=== PATIENT | female | born 1990 | race Caucasian/White ===

== ENCOUNTER 2024-11-03 10:39 | Outpatient (CLI) | payer OTHER, SELFPAY ==
[2024-11-03] VITALS (7 sets, daily range): BP systolic 141–148; BP diastolic 80–87; PULSE 83–89
--- OUTSIDE RECORDS SUMMARY | 2024-11-03 10:48 | XMS_ITS | Clinical Summary ---
Author Organization [facility] Address [address] [place] [address] Care Team Providers Care Heel Padder Name Role Phone Unknown, Notinfile Primary Care Provider Unavail able Allergies No known active allergies Medications meclizine (ANTIVERT) 25 mg tablet Take 1 tablet (25 mg total) by mouth 3 (three) times a day as needed for dizziness 30 tablet 2 Active butalbital-aspi rin-caffeine (FIORINAL) 50-325-40 mg capsule Take 1 capsule by mouth every 4 (four) hours as needed for headaches 30 capsule 2 Active ketorolac (TORADOL) 10 mg tablet Take 1 tablet (10 mg total) by mouth every 6 (six) hours as needed for pain 20 tablet 3 Active Active Problems No known active problems Social History Tobacco Use Types Packs/Day Years Used Date Smoking Tobacco: Never Tobacco Cessation:Counseling Given: Not Answered Alcohol Use Standard Drinks/Week Comments Never 0 (1 standard drink = 0.6 oz pur e alcohol) Comments No Sex and Gender Information Value Date Recorded Sex Assigned at Not on file 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 Gender Identity Not on file Sexual Orientation Not on file Obstetrics History Last Filed Vital Signs Vital Sign Reading Time Taken Comments Blood Pressure 173/94 04/02/2023 7:23 PM CDT Pulse 66 04/02/2023 7:23 PM CDT Temperature 37.2 C (99 F) 04/02/2023 7:23 PM CDT Respiratory Rate 16 04/02/2023 7:23 PM CDT Oxygen Saturation 100% 04/02/2023 7:23 PM CDT Inhaled Oxygen Concentration - - Weight 74.3 kg (163 lb 12.8 oz) 04/02/2023 7:23 PM CDT Height 154.9 cm (5' 1) 04/02/2023 7:23 PM CDT Body Mass Index 30.95 04/02/2023 7:23 PM CDT Plan of Treatment Health Maintenance Due Date Last Done Comments Cervical Cancer Screening 1990 Depression Screening 1990 Hepatitis C Screening 1990 DTaP/Tdap/Td Vaccine (1 - Tdap) 2001 Varicella Vaccines (1 of 2 - 13+ 2-dose series) 2003 Hepatitis B Screening 2008 Regular Well Visit/Exam 18-64 2008 Influenza Vaccine (Season Ended) 2025 HPV Vaccines Aged Out No longer eligi ble based on patient's age to complete this topic Pneumococcal vaccine <65 Aged Out No longer eligible based on patient's age to complete this topic Insurance [facility] Care Teams Heel Padder Relationship Specialty Start Date End Date Unknown, Notinfile PCP - General 04/02/23
--- OUTSIDE RECORDS SUMMARY | 2024-11-03 10:48 | XMS_ITS | Referral Summary ---
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
--- OUTSIDE RECORDS SUMMARY | 2024-11-03 10:48 | XMS_ITS | Data Portability ---
Author Organization [facility] [place] Address [address] [place] [address] [place] [address] Assessment Encounter Date Assessment Date Assessment LastModified by Organization Details LastModified Time 10/05/2024 10/05/2024 Patient is ___weeks . Discussed plan. Not available 10/05/2024 11:31:30 10/16/2024 10/16/2024 Patient is ___weeks . Discussed plan. Not available 10/16/2024 12:54:40 Plan of Treatment Reminders Order Date Submit Date Provider Last Modified By Organization Details Last Modified Time Details Appointments None record ed. Lab None record ed. Referral None record ed. Procedures None record ed. Surgeries None record ed. Imaging US, obstet aayush, follow -up 025 10/17/[address], [address], [place], [address], 21:14:53 US, obstet aayush, follow -up 025 09/19/[address], [address], [place], [address], 18:28:34 Medication Orders None record ed. Patient TargetsNo targets recorded. Patient InstructionsNo instructions recorded. Reason for Referral None Reported. Results Created Date Observation Date Name Description Value Unit Range Abnormal Flag Note LastModifiedBy Organization Detail LastModifiedTime 09/19/19 25 09/18/2024 HEMOG LOBIN (HGB) HGB 9.9 g/dL (based on docume nted legal sex) 11.6-1 5.4 low Not Available [facility] (Lab) [address], [place], [address], 09/19/2024 10:44:01 09/19/19 25 09/18/2024 HEMAT OCRIT (HCT) HCT 29.6 % (based on docume nted legal sex) 34.0-4 5.0 low Not Available [facility] (Lab) [address], [place], [address], 09/19/2024 10:44:02 09/19/19 25 09/18/2024 GTT - GESTA KARINA L TARIK Styles, ACOG OB glucose, 1 hour screen 113 mg/dL 70-135 Not Available [facility] (Lab) [address], [place], [address], 09/19/2024 10:44:02 09/19/19 25 09/18/2024 HIV 1/2 ANTIG EN/AN TIBOD Y, REFLE X CONFI RMATI ON HIV antigen/anti body Nonrea ctive nonrea ctive HIV-1 antig en and HIV-1 /HIV- 2 antib odies were not detec uday. No labor atory evide nce of HIV infec tion. Not Available [facility] (Lab) [address], [place], [address], 09/19/2024 10:44:02 09/19/19 25 09/18/2024 RPR SCREE N, REFLE X TITER /CONF IRMAT ION RPR qualitative Nonrea ctive nonrea ctive Not Available [facility] (Lab) [address] [place], [address], 09/19/2024 10:44:03 08/22/19 25 08/21/2024 US, obste tric, follo w-up No observ ation record ed. [email or web address] [facility] [address], [place], [address], 08/21/2024 16:13:16 08/22/19 25 08/21/2024 US, obste tric, follo w-up No observ ation record ed. [email or web address] [address], [place], [address], 08/23/2024 22:57:33 09/19/19 25 09/18/2024 US, obste tric, follo w-up No observ ation record ed. [email or web address] [place] [address], [place], [address], 09/18/2024 17:12:51 09/19/19 25 09/18/2024 US, obste tric, follo w-up No observ ation record ed. [address], [place], [address], 09/25/2024 16:00:38 10/17/19 25 10/16/2024 US, obste tric, follo w-up No observ ation record ed. [email or web address] [place] [address], [place], [address], 10/16/2024 18:14:32 10/17/19 25 10/16/2024 US, obste tric, follo w-up No observ ation record ed. [email or web address] [address], [place], [address], 10/17/2024 15:03:57 Result Notes None recorded. Problems Name Problem SNOMED Code Status Onset Date Resolution Date Notes Provider Name and Address Organization Details Recorded Time Dysmenorr hea 520677793 Active 2012 Dysmenorr hea;Pract ice ID: 0001 Not Available [facility] 0 19:06:35 Irregular intermens trual bleeding 05700775 Active 2012 Metrorrha bishnu;Pract ice ID: 0001 Not Available [facility] 0 19:06:35 Family planning surveilla nce Active 2012 Surveilla nce of other contracep tive method;Pr actice ID: 0001 Not Available [facility] 0 19:06:[address] Concept Active 2017 Encntr for instrument repairer helper exam (general) (routine) w/o abn findings; Practice ID: 0001 Not Available [facility] 0 19:06:35 Removal of intrauter ine device Active 2017 Encounter for removal of intrauter ine contracep tive device;Pr actice ID: 0001 Not Available [facility] 0 19:06:35 Threatene d miscarria ge 55770689 Active 2018 Threatene d ; Practice ID: 0001 Not Available [facility] 0 19:06:35 Gestation less than 9 weeks 248956966 Active 2018 Less than 8 weeks gestation of ;Practice ID: 0001 Not Available [facility] 0 19:06:35 test negative 182686548 Active 2012 examinati on or test, negative result;Re corded Elsewhere : No Locati on: [facility] So urce: EHR Chron ic: N Practic e ID: 0001 Bill able Time: 02:30:00 PM Not Available [facility] 0 19:06:36 Insertion of intrauter ine contracep tive device Active 2012 INSERTION OF IUD;Recor ded Elsewhere : No Locati on: [facility] So urce: EHR Chron ic: N Practic e ID: 0001 Bill able Time: 02:30:00 PM Not Available [facility] 0 19:06:36 Specializ ed medical examinati on Active 2011 Gynecolog ical Examinati on;Record ed Elsewhere : No Locati on: [facility] So urce: EHR Chron ic: N Practic e ID: 0001 Bill able Time: 01:00:00 PM Not Available [facility] 0 19:06:36 Infection by Trichomon as 74751094 Active 2017 Trichomon iasis, unspecifi ed;Record ed Elsewhere : No Locati on: [facility] So urce: EHR Chron ic: N Practic e ID: 0001 Bill able Time: 03:22:43 PM Not Available [facility] 0 19:06:36 Screening for malignant neoplasm of cervix Active 2011 Screening for malignant neoplasms of the cervix;Re corded Elsewhere : No Locati on: [facility] So urce: EHR Chron ic: N Practic e ID: 0001 Bill able Time: 01:00:00 PM Not Available [facility] 0 19:06:36 test positive 353326583 Active 2011 examinati on or test, positive result;Re corded Elsewhere : No Locati on: [facility] So urce: EHR Chron ic: N Practic e ID: 0001 Bill able Time: 01:00:00 PM Not Available [facility] 0 19:06:36 Uterine size for dates discrepan cy 934383433 Active 2011 UTERINE SIZE KIT-ANTEP AR;Record ed Elsewhere : No Locati on: [facility] So urce: EHR Chron ic: N Practic e ID: 0001 Bill able Time: 11:45:00 AM Not Available [facility] 0 19:06:36 Primigrav martell 772186883 Active 2012 Supervisi on of normal first ;Recorded Elsewhere : No Locati on: [facility] So urce: EHR Chron ic: N Practic e ID: 0001 Bill able Time: 02:45:00 PM Not Available [facility] 0 19:06:36 Complicat ion of , childbirt h and/or puerperiu m 276591984 Active 2012 Other current condition s classifia ble elsewhere of mother, antepartu m;Practic e ID: 0001 Not Available [facility] 0 19:06:37 Abdominal pain 58124297 Active 2012 Abdominal pain, unspecifi ed site;Prac izzy ID: 0001 Not Available [facility] 0 19:06:37 Labor and delivery complicat ed by heart rate anomaly 544409001 Active 2012 HEART RATE NON REASSURIN G;Practic e ID: 0001 Not Available [facility] 0 19:06:37 Ill-defin ed intestina l infection Active 2012 No Show Fee;Pract ice ID: 0001 Not Available [facility] 0 19:06:37 Delivery normal 28133146 Active 2012 Normal delivery; Practice ID: 0001 Not Available [facility] 0 19:06:37 Single live from jama 876424861 Active 2012 Mother with single liveborn; Practice ID: 0001 Not Available [facility] 0 19:06:37 Postpartu m care Active 2012 Routine postpartu m follow-up ;Recorded Elsewhere : No Locati on: [facility] So urce: EHR Chron ic: N Practic e ID: 0001 Bill able Time: 09:30:00 AM Not Available [facility] 0 19:06:38 Ultrasono graphy Active 2012 screening for malformat ion using ultrasoni cs;Record ed Elsewhere : No Locati on: [facility] So urce: EHR Chron ic: N Practic e ID: 0001 Bill able Time: 02:30:00 PM Not Available [facility] 0 19:06:38 screening Active 2012 screening for malformat ion using ultrasoni cs;Record ed Elsewhere : No Locati on: [facility] So urce: EHR Chron ic: N Practic e ID: 0001 Bill able Time: 02:30:00 PM Not Available [facility] 0 19:06:38 Congenita l malformat ion 065287477 Active 2012 screening for malformat ion using ultrasoni cs;Record ed Elsewhere : No Locati on: [facility] So urce: EHR Chron ic: N Practic e ID: 0001 Bill able Time: 02:30:00 PM Not Available [facility] 0 19:06:38 Urinary tract infectiou s disease 72770645 Active 2011 Urinary Tract Infection ;Recorded Elsewhere : No Locati on: [facility] So urce: EHR Chron ic: N Practic e ID: 0001 Bill able Time: 01:00:00 PM Not Available [facility] 0 19:06:[address] Concept Active 2017 Encntr for general adult medical exam w/o abnormal findings; Recorded Elsewhere : No Locati on: [facility] So urce: EHR Chron ic: N Practic e ID: 0001 Bill able Time: 10:30:00 AM Not Available [facility] 0 19:06:38 anatomy study Active 2012 [facility] ANATMC SURVEY;Re corded Elsewhere : No Locati on: [facility] So urce: EHR Chron ic: N Practic e ID: 0001 Bill able Time: 02:00:00 PM Not Available [facility] 0 19:06:38 50672094 Active 2023 Viji Atkinson [facility], [facility] 4 15:07:44 Velamento us insertion of umbilical cord 81305055 Active Juan Miguel Rich MD [address], [place], [address], [facility] 5 11:16:58 Problem Notes None recorded. Procedures Surgical History Date Name Laterality Status Provider Name and Address Organization Details Recorded Time 02/09/2018 Date of Last Pap Smear completed Viji Atkinson [facility] 05/25/2024 15:12:19 Imaging Results None recorded. Procedure Notes None recorded. Medical Equipment None Reported. Allergies No known drug allergies Medications Name Sig Start Date Stop Date Status Note LastModified by Organization Details LastModified Time Flagyl 500 mg tablet take 4 tablets by oral route all at once 05/02 completed Prescrib ed Elsewher e: No Locat ion: [facility] odify By: [email or web address] reyes DateTime : 03/01/20 18 03:22:43 PM Not Available Not Available Not Available pantopraz ole 40 mg tablet,de layed release TAKE 1 TABLET BY MOUTH EVERY DAY active Not Available Not Available No t Available Vitamin D2 1,250 mcg (50,000 unit) capsule take 1 capsule (96502SL ITS) by oral route every week 12/22 completed Prescrib ed Elsewher e: No Locat ion: [facility] odify By: maximiliano story DateTime : 09/09/19 13 10:20:20 AM Not Available Not Available Not Available Augmentin 500 mg-125 mg tablet take 1 tablet by oral route every 12 hours 12/22 completed Prescrib ed Elsewher e: No Locat ion: Isidro johnson [facility] odify By: maximiliano story DateTime : 05/10/20 12 11:45:00 AM Not Available Not Available Not Available nitrofura ntoin monohydra te/macroc rystals 100 mg capsule TAKE 1 CAPSULE BY MOUTH TWICE A DAY DIRECTED FOR 7 DAYS 07/24 completed Not Available Not Available Not Available active Not Available Not Avai lable Not Available 10 mg-[address] by Topical route every USE ASS NEEDED WITH INTERCOU RSE 05/02 completed Prescrib ed Elsewher e: Yes Loca tion: Isidro johnson [facility] odify By: maximiliano story DateTime : 12/23/19 13 09:30:00 AM Not Available Not Available Not Available Maria Victoria-D uo DHA 29 mg-1 mg-400 mg oral pack take 2 by Oral route every day for 30 days 06/02 completed Prescrib ed Elsewher e: No Locat ion: Isidro johnson [facility] odify By: dilip story DateTime : 05/04/20 12 01:00:00 PM Not Available Not Available Not Available Vitals Date Recorded Body weight Body mass index (BMI) Body height Systolic blood pressure Diastolic blood pressure Provider Name and Address Organization Details Last Updated DateTime 09/18/2024 65620.99 608 g 33.7 kg/m2 157.48 cm 135 mm[Hg] 85 mm[Hg] iVji Atkinson [facility] 10:07:11 Date Recorded Body weight Systolic blood pressure Diastolic blood pressure Provider Name and Address Organization Details Last Updated DateTime 10/05/2024 15070.5884 5 g 145 mm[Hg] 90 mm[Hg] Viji Atkinson [facility] 10/05/2024 11:32:07 Date Recorded Body height Body mass index (BMI) Body weight Systolic blood pressure Diastolic blood pressure Provider Name and Address Organization Details Last Updated DateTime 10/16/2024 157.48 cm 33.7 kg/m2 01219 g 148 mm[Hg] 86 mm[Hg] Viji Atkinson [facility] 12:56:36 Social History Question Answer Notes LastModified by Organizat ion Details LastModified Time Do You Have An Advance Directive? No [email or web address] Information n ot available 05/12/2024 Are You Blind Or Do You Have Difficulty Seeing? No [email or web address] Information n ot available 05/02/2024 What Is Your Level Of Caffeine Consumption? Occasional [email or web address] Information not available 05/12/2024 In The 14 Days Before Symptom Onset, Have You Had Close Contact With A Laboratory-confirm ed COVID-19 While That Case Was Ill? No [email or web address] Information n ot available 05/02/2024 In The 14 Days Before Symptom Onset, Have You Had Close Contact With A Person Who Is Under Investigation For COVID-19 While That Person Was Ill? No Information not available 05/02/2024 Have You Been To An Area Known To Be High Risk For COVID-19? No Information not available 05/02/2024 Are You Deaf Or Do You Have Serious Difficulty Hearing? No [email or web address] Information not available 05/02/2024 What Type Of Diet Are You Following? REGULAR [email or web address] Information n ot available 05/12/2024 What Is The Highest Grade Or Level Of School You Have Completed Or The Highest Degree You Have Received? [id number] Information not available 05/12/2024 Are There Any Guns Present In Your Home? No [email or web address] Information not available 05/12/2024 Do You Use Protection During Sex? No [email or web address] Information not available 05/12/2024 Do You Use Your Seat Belt Or Car Seat Routinely? Yes [email or web address] Information not available 05/02/2024 Are You Sexually Active? Yes [email or web address] Information not available 05/02/2024 Do You Have Smoke And Carbon Monoxide Detectors In Your Home? Yes [email or web address] Information not available 05/02/2024 How Much Tobacco Do You Smoke? No [email or web address] Information not available 05/12/2024 Do You Use Sunscreen Routinely? Yes [email or web address] Information not available 05/02/2024 Have You Used IV Drugs? No [email or web address] Information not available 05/12/2024 Do You Have Difficulty Walking Or Climbing Stairs? No [email or web address] Information not available 05/02/2024 Sex: Unknown Functional Status Question Answer Note LastModified by Organizat ion Details LastModified Time Do you use any illicit or recreational drugs? No [email or web address] Information not available 05/02/2024 What is your level of alcohol consumption? None [email or web address] Information not available 05/12/2024 Are you able to walk? YESWOREST [email or web address] Information not available 05/02/2024 Are you able to care for yourself? No [email or web address] Information n ot available 05/02/2024 What is your occupation? Unemployed [email or web address] Information not available 05/12/2024 Do you have difficulty dressing or bathing? No [email or web address] Information not available 05/02/2024 What is your exercise level? None [email or web address] Information not available 05/02/2024 Mental Status Question Answer Note LastModified by Organization D etails LastModified Time Do you feel stressed (tense, restless, nervous, or anxious, or unable to sleep at night)? [id number] [email or web address] Information not available 05/12/2024 Family History Relationship Description Onset Age of this Age Resolved Age Notes LastModified by Organization Details LastModified Time Father Malignant tumor of colon [email or web address] Not available 2023 11:18:19 Mother Hypertensive disorder [email or web address] Not available 2023 11:18:30 Notes:Father: Cancer, colon Maternal grandfather: Hypertension Paternal grandfather: Cancer, colon Paternal grandmother: Cancer, breast Medical History Condition Response Allergies (Food, seasonal, environmental ) N Other N Breast Cancer N Drug/Latex Allergies/Reactions N Blood Transfusion N Dermatologic Disorders N Lung Disease N Defects or Inherited Disease N Breast Problem N Gestational Diabetes N Hematologic disorders N Anesthesia Complications N History of STI N Deep Vein Thrombosis N Polycystic ovary syndrome N Anxiety Disorder N Autoimmune disease N Arthritis N Infertility N Polyps N Acid Reflux (GERD) N History of abnormal pap N Cancer N Stroke N Varicosities N Neurologic/Epilepsy N Endometriosis N High Cholesterol N Headaches N Fibromyalgia N Kidney Disease N Heart Problems N Kidney or Bladder Problems N Thyroid Problems N GI Problems N Eating Disorder N Anemia N Art (IVF or FET) N Psychiatric Illness N Ovarian Cancer N Diabetes N Pulmonary (TB, Asthma) N Hepatitis/Liver Disease N No Past Medical History Y Eczema N Urinary Tract Infection N Abuse/Domestic Violence N Asthma N Trauma/Violence N Depression/ depression N Heart Disease N Pre-Eclampsia N Hypertension N Osteoporosis N Thrombophilias N Gynecological History Statement/Question Response Abnormal Pap N Flow Moderate Date of LMP 03/01/2024 On BCP's at Conception? N Was last menstrual period normal Y STIs/STDs Y Duration of Flow (days) 5 Current Control Method Are cycles usually normal Y Frequency of Cycle (Q days) 28 Sexually Active? Y Menses Monthly Y Age of first menstrual cycle 10 Date of Last Pap Smear 02/09/2018 Sexual Problems? N LMP Approximate Obstetrics History GPAL:G 3 P 1 0 1 1 Type Value Full Term 1 Spontaneous 1 Living 1 Total 3 Past Encounters Encounter ID Performer Location Encounter Start Date Encounter Closed Date Diagnosis/Indication Diagnosis SNOMED-CT Code Diagnosis ICD10 Code Diagnosis Note [id number] Juan Miguel Rich MD [facility] [address],[place] [address] 05/02/2024 11:02:45 05/02/2024 11:40:21 [id number] SHARI TAVERAS MD [facility] [address],[place] [address] 05/02/2024 11:14:07 05/04/2024 11:30:31 [id number] SHARI TAVERAS MD [place] [address],[place] [address] 05/12/2024 09:34:30 05/12/2024 10:15:51 screening 897405952 Z36.0 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 Exam today within normal limits.2. Ultrasound 05/02 confirms GA and viability. EDC . GC/Clamydi a testing done: will f/u as indicated. 4. ACOG guidelines and plan of care for reviewed with patient. All questions answered.5 . Return to office at 12 weeks for new OB visit6. Will need new OB labs drawn today.7. Genetic screening: desires, will draw today [id number] MD Zenon Lott [address],[place] [address] 05/25/2024 14:03:20 05/25/2024 15:08:48 screening 816547745 Z36.82 Z3A.12 [id number] MD Zenon Lott [address],[place] [address] 05/25/2024 14:03:41 05/25/2024 15:56:37 Routine care 679336077 Z34.90 [id number] MD Zenon Lott [address],[place] [address] 06/26/2024 09:33:57 06/26/2024 10:30:39 Routine care 300957947 Z34.90 [id number] MD Zenon Lott [address],[place] [address] 07/24/2024 09:25:07 07/24/2024 10:37:56 screening for malformation 335116632 Z36.3 Z3A.20 [id number] MD Zenon Lott [address],[place] [address] 07/24/2024 09:25:19 07/24/2024 11:40:59 Gastroesophageal reflux disease 508230657 K21.00 Routine an tenatal care 681506955 Z34.90 [id number] MD Zenon Lott [address],[place] [address] 08/21/2024 09:25:46 08/21/2024 10:12:54 screening 279105534 Z36.2 O43.122 Z3A.24 [id number] MD Zenon Lott [address],[place] [address] 08/21/2024 09:25:58 08/21/2024 11:06:35 Routine care 884958918 Z34.90 [id number] MD Zenon Lott [address] 1 09/18/2024 09:26:25 09/18/2024 10:11:01 Velamentous insertion of umbilical cord 74673133 O43.123 Z3A.28 [id number] MD Zenon Lott [address],[place] [address] 09/18/2024 09:26:47 09/18/2024 10:59:01 care status 575325479 Z34.83 [id number] MD Zenon Lott [address],[place] [address] 10/05/2024 11:04:56 10/05/2024 11:46:16 care status 988652901 Z34.83 [id number] MD Zenon Lott [address],[place] [address] 10/16/2024 11:52:23 10/16/2024 12:50:32 Velamentous insertion of umbilical cord 43852906 O43.123 Z3A.32 [id number] Juan Miguel Rich MD [facility] [address],[place] [address] 10/16/2024 11:52:47 10/16/2024 13:15:05 care status 809975638 Z34.83 Health Concerns Section Related Observation LastModified by Organization Detai ls LastModified Time None Recorded Concern Status LastModified by Organization Details LastModified Time None Recorded Advance Directives Directive N: Payers Encounter Date Sequence Insurance Name Policy Number Policy Jennings Covered Member ID Jennings Member ID Guarantor Name 09/18/2024 1 [facility] (MEDICAID HMO) [id number] Phill Muller [id number] Phill Muller 10/05/2024 1 [facility] (MEDICAID HMO) [id number] Phill Muller [id number] Phill Muller 10/16/2024 1 [facility] (MEDICAID HMO) [id number] Phill Muller [id number] Phill Renzo 10/16/2024 1 [facility] (MEDICAID HMO) [id number] Phill Renzo [id number] Phill Renzo OBGyn Episode Ob Episode Information Episode Created Date Number of Fetuses Patient Bloodtype Patient rh Status Prepregnancy Weight lbs Domestic Partner Domestic Partner Phone Father Name Dental Practitioner Status 05/25/20 24 1 CLOSED Fetus Data First Name Last Name Admitted to NICU Weight (g) Sex Living Outcome Pediatric Complications Fetus ID Race Codes Race Delivery Type 2806.37 3704 M Prematur e 36150 Vaginal Delivery Sergey Calculation Initial Sergey Date Initial Exam Date Initial Exam Provider Initial Ultrasound Date Last Menstrual Period Date Ultra Sound Weeks Gestation 0 Eighteen To Twenty Week Sergey Update Ultra Sound Date Fundal Height At Umbil Quickening Date Ultra Sound Latest Weeks Gestation Final Sergey Confirmed By Final Sergey Confirmed Date Final Sergey Date Ultra Sound Latest Days Gestation 0 0 Menstrual History Last Menstrual Date Menses Monthly On Bcp Conception Prior Menses Frequency Hcg Plus Date Menarche Onset Age Delivery Information Delivery Date Delivery Type Labor Anesthesia Weeks Gestation Incision Type Labor Labor Length Hrs Delivered By Post Complications Tubal Sterilization Discharge Date Comments 3 38 Discharge Information Feeding Method Contraceptive Method Maternal HG B and HCT Levels Ob Episode Information Episode Created Date Number of Fetuses Patient Bloodtype Patient rh Status Prepregnancy Weight lbs Domestic Partner Domestic Partner Phone Father Name Dental Practitioner Status 05/02/20 24 1 CLOSED Fetus Data First Name Last Name Admitted to NICU Weight (g) Sex Living Outcome Pediatric Complications Fetus ID Race Codes Race Delivery Type , Spontane ous [id number] Sergey Calculation Initial Sergey Date Initial Exam Date Initial Exam Provider Initial Ultrasound Date Last Menstrual Period Date Ultra Sound Weeks Gestation 0 Eighteen To Twenty Week Sergey Update Ultra Sound Date Fundal Height At Umbil Quickening Date Ultra Sound Latest Weeks Gestation Final Sergey Confirmed By Final Sergey Confirmed Date Final Sergey Date Ultra Sound Latest Days Gestation 0 0 Menstrual History Last Menstrual Date Menses Monthly On Bcp Conception Prior Menses Frequency Hcg Plus Date Menarche Onset Age Delivery Information Delivery Date Delivery Type Labor Anesthesia Weeks Gestation Incision Type Labor Labor Length Hrs Delivered By Post Complications Tubal Sterilization Discharge Date Comments 9 Discharge Information Feeding Method Contraceptive Method Maternal HG B and HCT Levels Ob Episode Information Episode Created Date Number of Fetuses Patient Bloodtype Patient rh Status Prepregnancy Weight lbs Domestic Partner Domestic Partner Phone Father Name Dental Practitioner Status 05/25/20 24 1 A Positive 169 OPEN Fetus Data First Name Last Name Admitted to NICU Weight (g) Sex Living Outcome Pediatric Complications Fetus ID Race Codes Race Delivery Type [id number] Problems Problem Notes Problem Name Start Date End Date Resolution Snomed Code Not e Velamentous insertion of umb ilical cord [id number] Sergey Calculation Initial Sergey Date Initial Exam Date Initial Exam Provider Initial Ultrasound Date Last Menstrual Period Date Ultra Sound Weeks Gestation 05/25/2024 05/02/2024 03/01/2024 9 Eighteen To Twenty Week Sergey Update Ultra Sound Date Fundal Height At Umbil Quickening Date Ultra Sound Latest Weeks Gestation Final Sergey Confirmed By Final Sergey Confirmed Date Final Sergey Date Ultra Sound Latest Days Gestation 0 [email or web address] 05/25/2024 12/07/19 25 0 Pre- Flowsheet Flowsheet Date 05/25/2024 Terrazas Score Blood Edema Fundus Height Fundus Units Glucose Ketones Leukocytes Nitrite Labor Signs Protein Cervic Dilation Cervic Effacement Cervic Station Type Weight in lbs Pre/Post Dialysis Refused Weight 166.770938061665 BP Diastolic BP Location Tested BP Systolic BP Type 87 L arm 139 sitting Fetus Heart Rate Present A 144 Fetus Movement A No Comments this patient is a 34-year-ol d multiparous female at 12 weeks' gestation who presents for initial care. She has a history of term vaginal births. Her medical, surgical, obstetric history is unremarkable. She is vaccinated. She was given precautions recommendations for . We talked about vaccines in . Talked about care in detail. She is having genetic testing. She had a normal 12 week ultrasound. To begin routine care. Flowsheet Date 06/26/2024 Terrazas Score Blood Edema Fundus Height Fundus Units Glucose Ketones Leukocytes Nitrite Labor Signs Protein Cervic Dilation Cervic Effacement Cervic Station Type Weight in lbs Pre/Post Dialysis Refused 168.352645242195 BP Diastolic BP Location Tested BP Systolic BP Type 89 L arm 139 sitting Fetus Heart Rate Present A 148 Fetus Movement A Yes Comments no complaints, no problems, routine care, no contractions, no vaginal bleeding, no loss of fluid, no cramping Flowsheet Date 07/24/2024 [place]razas Score Blood Edema Fundus Height Fundus Units Glucose Ketones Leukocytes Nitrite Labor Signs Protein Cervic Dilation Cervic Effacement Cervic Station Type Weight in lbs Pre/Post Dialysis Refused BP Diastolic BP Location Tested BP Systolic BP Type Fetus Heart Rate Present Fetus Movement Comments Flowsheet Date 07/24/2024 Terrazas Score Blood Edema Fundus Height Fundus Units Glucose Ketones Leukocytes Nitrite Labor Signs Protein Cervic Dilation Cervic Effacement Cervic Station Type Weight in lbs Pre/Post Dialysis Refused 170.142631081824 BP Diastolic BP Location Tested BP Systolic BP Type 83 L arm 140 sitting Fetus Heart Rate Present A 145 Fetus Movement A Yes Comments no complaints, no problems, routine care, no contractions, no vaginal bleeding, no loss of fluid, no cramping Flowsheet Date 08/21/2024 Terrazas Score Blood Edema Fundus Height Fundus Units Glucose Ketones Leukocytes Nitrite Labor Signs Protein Cervic Dilation Cervic Effacement Cervic Station Type Weight in lbs Pre/Post Dialysis Refused BP Diastolic BP Location Tested BP Systolic BP Type Fetus Heart Rate Present Fetus Movement Comments Flowsheet Date 08/21/2024 Terrazas Score Blood Edema Fundus Height Fundus Units Glucose Ketones Leukocytes Nitrite Labor Signs Protein Cervic Dilation Cervic Effacement Cervic Station Type Weight in lbs Pre/Post Dialysis Refused Weight 179.136331981303 BP Diastolic BP Location Tested BP Systolic BP Type 85 L arm 146 sitting Fetus Heart Rate Present Fetus Movement A Yes Comments no complaints, no problems, routine care, no contractions, no vaginal bleeding, no loss of fluid, no cramping normal anatomy today Flowsheet Date 09/18/2024 Terrazas Score Blood Edema Fundus Height Fundus Units Glucose Ketones Leukocytes Nitrite Labor Signs Protein Cervic Dilation Cervic Effacement Cervic Station Type Weight in lbs Pre/Post Dialysis Refused BP Diastolic BP Location Tested BP Systolic BP Type Fetus Heart Rate Present Fetus Movement Comments Flowsheet Date 09/18/2024 Terrazas Score Blood Edema Fundus Height Fundus Units Glucose Ketones Leukocytes Nitrite Labor Signs Protein Cervic Dilation Cervic Effacement Cervic Station Type Weight in lbs Pre/Post Dialysis Refused 184.807637567513 BP Diastolic BP Location Tested BP Systolic BP Type 85 L arm 135 sitting Fetus Heart Rate Present Fetus Movement A Yes Comments no complaints, no problems, routine care, no contractions, no vaginal bleeding, no loss of fluid, no cramping Flowsheet Date 10/05/2024 Terrazas Score Blood Edema Fundus Height Fundus Units Glucose Ketones Leukocytes Nitrite Labor Signs Protein Cervic Dilation Cervic Effacement Cervic Station 28 cm Type Weight in lbs Pre/Post Dialysis Refused 185.279502691440 BP Diastolic BP Location Tested BP Systolic BP Type 90 L arm 145 sitting Fetus Heart Rate Present A 148 Present Fetus Movement A Yes Comments no complaints, no problems, routine care, no contractions, no vaginal bleeding, no loss of fluid, no cramping Flowsheet Date 10/16/2024 [place]razas Score Blood Edema Fundus Height Fundus Units Glucose Ketones Leukocytes Nitrite Labor Signs Protein Cervic Dilation Cervic Effacement Cervic Station Type Weight in lbs Pre/Post Dialysis Refused BP Diastolic BP Location Tested BP Systolic BP Type Fetus Heart Rate Present Fetus Movement Comments Flowsheet Date 10/16/2024 Terrazas Score Blood Edema Fundus Height Fundus Units Glucose Ketones Leukocytes Nitrite Labor Signs Protein Cervic Dilation Cervic Effacement Cervic Station Type Weight in lbs Pre/Post Dialysis Refused Weight 184.445644540949 BP Diastolic BP Location Tested BP Systolic BP Type 86 L arm 148 sitting Fetus Heart Rate Present A 145 Fetus Movement A Yes Comments no complaints, no problems, routine care, no contractions, no vaginal bleeding, no loss of fluid, no cramping Flowsheet Date 11/03/2024 [place]razas Score Blood Edema Fundus Height Fundus Units Glucose Ketones Leukocytes Nitrite Labor Signs Protein Cervic Dilation Cervic Effacement Cervic Station Type Weight in lbs Pre/Post Dialysis Refused BP Diastolic BP Location Tested BP Systolic BP Type Fetus Heart Rate Present Fetus Movement Comments Menstrual History Last Menstrual Date Menses Monthly On Bcp Conception Prior Menses Frequency Hcg Plus Date Menarche Onset Age 1003/01/2024 true 28 Delivery Information Delivery Date Delivery Type Labor Anesthesia Weeks Gestation Incision Type Labor Labor Length Hrs Delivered By Post Complications Tubal Sterilization Discharge Date Comments Discharge Information Feeding Method Contraceptive Method Maternal HG B and HCT Levels Ob Episode Information Episode Created Date Number of Fetuses Patient Bloodtype Patient rh Status Prepregnancy Weight lbs Domestic Partner Domestic Partner Phone Father Name Dental Practitioner Status 05/02/20 24 1 DELETED Sergey Calculation Initial Sergey Date Initial Exam Date Initial Exam Provider Initial Ultrasound Date Last Menstrual Period Date Ultra Sound Weeks Gestation 0 Eighteen To Twenty Week Sergey Update Ultra Sound Date Fundal Height At Umbil Quickening Date Ultra Sound Latest Weeks Gestation Final Sregey Confirmed By Final Sergey Confirmed Date Final Sergey Date Ultra Sound Latest Days Gestation 0 0 Menstrual History Last Menstrual Date Menses Monthly On Bcp Conception Prior Menses Frequency Hcg Plus Date Menarche Onset Age Delivery Information Delivery Date Delivery Type Labor Anesthesia Weeks Gestation Incision Type Labor Labor Length Hrs Delivered By Post Complications Tubal Sterilization Discharge Date Comments 3 Discharge Information Feeding Method Contraceptive Method Maternal HG B and HCT Levels
[2024-11-03 11:15] LABS: Basophils Percent Auto 0.3 % (0.2-1.2); Eosinophils Absolute Auto 0.1 K/mm3 (0-0.3); Eosinophils Percent Auto 0.8 % (0-4.4); Hematocrit 35.6 % (37.0-47.0); Hemoglobin 11.6 g/dL (12.0-15.0); Immature Granulocyte Absolute 0.08 K/mm3 (0.00-0.031); Immature Granulocyte Percent A 0.6 % (0-0.5); Lymphocytes Absolute Auto 1.14 K/mm3 (0.9-3.2); Lymphocytes Percent Auto 8.7 % (18.3-44.2); Mean Corpuscular HGB Conc 32.6 g/dl (32-36); Mean Platelet Volume 10.4 fl (7.4-10.4); Monocytes Absolute Auto 0.5 K/mm3 (0.1-0.6); Monocytes Percent Auto 4.1 % (2.6-8.5); Neutrophils Absolute Auto 11.1 K/mm3 (1.3-6.7); Neutrophils Percent Auto 85.5 % (45.5-73.1); Platelet Count Result 284 k/mm3 (150-375); Red Blood Count 3.87 M/mm3 (4.2-5.4); Red Cell Distribution Width 16.4 % (11.5-14.5)
[2024-11-03 11:25] LABS: Creatinine Urine 13.7 mg/dL; Total Protein Urine Random 16 mg/dL; Ur Ttl Prot Creatinine Ratio 1.17 mg/mg (0-0.20)
[2024-11-03 11:48] LABS: Add Urine Microscopic? NO; Appearance Urine Clear (Clear); Bilirubin Urine Negative (Negative); Blood Urine Negative (Negative); Color Urine Yellow (Yellow); Glucose Urine UA Negative (Negative); Ketones Urine Negative (Negative); Leukocyte Esterase Ur Negative LEU/UL (Negative); Nitrate Urine Negative (Negative); Protein Urine Negative (Negative); Specific Grav Ur 1.003 (1.001-1.035); Urobilinogen Urine 0.2 mg/dL (<2.0); pH Urine 7.5 (5.0-9.0)
[2024-11-03 12:25] LABS: Alanine Aminotransferase 10 U/L (6-35); Albumin Level 3.7 g/dL (3.5-5.1); Alkaline Phosphatase 119 U/L (38-126); Anion Gap 8 mmol/L (4-12); Aspartate Amino Transferase 19 U/L (14-36); Bilirubin,Total 0.3 mg/dL (0.2-1.3); Blood Urea Nitrogen 3 mg/dL (7-17); Calcium 9.1 mg/dL (8.4-10.2); Carbon Dioxide 17 mmol/L (22-30); Chloride 110 mmol/L (98-107); Estimated Glomerular Filt Rate > 60; Glucose 72 mg/dL (65-110); Potassium 3.9 mmol/L (3.4-5.0); Sodium 135 mmol/L (137-145); Total Protein 7.2 g/dL (6.3-8.2); Uric Acid 2.8 mg/dL (2.5-7.5)
--- NOTE | 2024-11-03 12:29 | PC.NURSE ---
[id number]- Spoke with Dr Rich regarding labs and BPs. Orders to follow up in office on Wednesday or Wednesday. Return to hospital if symptoms increase.
== END 2024-11-03 12:36 | disposition home or self-care (01) ==
LOC: ANHOBOP 10:47 → ANHOBPP 10:49
PROVIDERS: Visit Provider Obstetrics & Gynecology
DX: O13.9 Gestational [pregnancy-induced] hypertension without significant proteinuria, unspecified trimester (principal); Z3A.00 Weeks of gestation of pregnancy not specified
CPT/HCPCS: 36415; 59025; 80053; 81003; 82570; 84156; 84550; 85025; 99199

== ENCOUNTER 2024-11-08 16:50 | Outpatient (CLI) | payer OTHER, SELFPAY ==
[2024-11-08] VITALS (9 sets, daily range): BP systolic 142–157; BP diastolic 87–105; PULSE 87–99
[2024-11-08 18:06] LABS: Basophils Absolute Auto 0.1 K/mm3 (0.0-0.1); Basophils Percent Auto 0.5 % (0.2-1.2); Eosinophils Absolute Auto 0.1 K/mm3 (0-0.3); Eosinophils Percent Auto 1.3 % (0-4.4); Hematocrit 36.3 % (37.0-47.0); Immature Granulocyte Absolute 0.05 K/mm3 (0.00-0.031); Immature Granulocyte Percent A 0.5 % (0-0.5); Lymphocytes Absolute Auto 1.45 K/mm3 (0.9-3.2); Lymphocytes Percent Auto 13.1 % (18.3-44.2); Mean Corpuscular HGB Conc 33.1 g/dl (32-36); Mean Corpuscular Volume 90.8 fl (80-100); Monocytes Absolute Auto 0.6 K/mm3 (0.1-0.6); Monocytes Percent Auto 5.1 % (2.6-8.5); Neutrophils Absolute Auto 8.8 K/mm3 (1.3-6.7); Neutrophils Percent Auto 79.5 % (45.5-73.1); Platelet Count Result 296 k/mm3 (150-375)
[2024-11-08 18:10] LABS: Need Manual Microscopic Reviewed
[2024-11-08 18:16] LABS: Add Urine Microscopic? YES; Appearance Urine Cloudy (Clear); Bacteria Urine 2+ /hpf; Bilirubin Urine Negative (Negative); Blood Urine Negative (Negative); Color Urine Yellow (Yellow); Glucose Urine UA Negative (Negative); Ketones Urine Negative (Negative); Leukocyte Esterase Ur 3+ LEU/UL (Negative); Nitrate Urine Negative (Negative); Protein Urine Trace mg/dL (Negative); RBC Urine 0-2 /hpf (0-2); Specific Grav Ur 1.008 (1.001-1.035); Squamous Epithelial Cell Urine Many /hpf (Few); Urobilinogen Urine 0.2 mg/dL (<2.0); WBC Urine 21-50 /hpf (0-3)
--- OUTSIDE RECORDS SUMMARY | 2024-11-08 18:16 | XMS_ITS | Referral Summary ---
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
--- OUTSIDE RECORDS SUMMARY | 2024-11-08 18:16 | XMS_ITS | Clinical Summary ---
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
--- OUTSIDE RECORDS SUMMARY | 2024-11-08 18:16 | XMS_ITS | Continuity of Care Document ---
Author Organization [facility] [place] Address [address] [place] [address] Assessment No assessment recorded. Plan of Treatment Reminders Order Date Submit Date Provider Last Modified By Organization Details Last Modified Time Details Appointments BLOOD PRESSURE CHECK 2024 03:45P Allison RICH MD Not available Not available Not available Lab None recorded. Referral None recorded. Procedures None recorded. Surgeries None recorded. Imaging None recorded. Medication Orders None recorded. Patient TargetsNo targets recorded. Patient InstructionsNo instructions recorded. Reason for Referral None Reported. Results Created Date Observation Date Name Description Value Unit Range Abnormal Flag Note LastModifiedBy Organization Detail LastModifiedTime 05/25/20 24 05/25/2024 US, obste tric, nucha l trans lucen cy No observ ation record ed. [email or web address] [place] [address], [place], [address], 05/25/2024 15:23:20 05/25/20 24 05/25/2024 US, obste tric, nucha l trans lucen cy No observ ation record ed. [email or web address] [address], [place], [address], 05/25/2024 21:17:36 07/24/19 25 07/24/2024 US, obste tric, 2nd or 3rd trime ster No observ ation record ed. [email or web address] [place] [address], [place], [address], 07/24/2024 13:11:54 07/24/19 25 07/24/2024 US, obste tric, follo w-up No observ ation record ed. [email or web address] [address], [place], [address], 08/02/2024 14:12:25 08/22/19 25 08/21/2024 US, obste tric, follo w-up No observ ation record ed. [email or web address] [place] [address], [place], [address], 08/21/2024 16:13:16 08/22/19 25 08/21/2024 US, obste tric, follo w-up No observ ation record ed. [address], [place], [address], 08/23/2024 22:57:33 09/19/19 25 09/18/2024 US, obste tric, follo w-up No observ ation record ed. [email or web address] [place] [address], [place], [address], 09/18/2024 17:12:51 09/19/19 25 09/18/2024 US, obste tric, follo w-up No observ ation record ed. [email or web address] [address], [place], [address], 09/25/2024 16:00:38 10/17/19 25 10/16/2024 US, obste tric, follo w-up No observ ation record ed. [email or web address] [place] [address], [place], [address], 10/16/2024 18:14:32 10/17/19 25 10/16/2024 US, obste tric, follo w-up No observ ation record ed. [email or web address] [address], [place], [address], 10/17/2024 15:03:57 Result Notes None recorded. Problems Name Problem SNOMED Code Status Onset Date Resolution Date Notes Provider Name and Address Organization Details Recorded Time Dysmenorr hea 089427108 Active 2012 Dysmenorr hea;Pract ice ID: 0001 Not Available [facility] 0 19:06:35 Irregular intermens trual bleeding 74334430 Active 2012 Metrorrha bishnu;Pract ice ID: 0001 Not Available [facility] 0 19:06:35 Family planning surveilla nce Active 2012 Surveilla nce of other contracep tive method;Pr actice ID: 0001 Not Available [facility] 0 19:06:[address] Concept Active 2017 Encntr for automatic stacker exam (general) (routine) w/o abn findings; Practice ID: 0001 Not Available [facility] 0 19:06:35 Removal of intrauter ine device Active 2017 Encounter for removal of intrauter ine contracep tive device;Pr actice ID: 0001 Not Available [facility] 0 19:06:35 Threatene d miscarria ge 85766910 Active 2018 Threatene d ; Practice ID: 0001 Not Available [facility] 0 19:06:35 Gestation less than 9 weeks 406975913 Active 2018 Less than 8 weeks gestation of ;Practice ID: 0001 Not Available [facility] 0 19:06:35 test negative 891225934 Active 2012 examinati on or test, negative result;Re corded Elsewhere : No Locati on: [facility] So urce: EHR Chron ic: N Practic e ID: 0001 Bill able Time: 02:30:00 PM Not Available [facility] 0 19:06:36 Insertion of intrauter ine contracep tive device Active 2012 INSERTION OF IUD;Recor ded Elsewhere : No Locati on: [facility] So urce: EHR Chron ic: N Practic e ID: 0001 Bill able Time: 02:30:00 PM Not Available [facility] 0 19:06:36 Specializ ed medical examinati on Active 2011 Gynecolog ical Examinati on;Record ed Elsewhere : No Locati on: [facility] So urce: EHR Chron ic: N Practic e ID: 0001 Bill able Time: 01:00:00 PM Not Available [facility] 0 19:06:36 Infection by Trichomon as 54335701 Active 2017 Trichomon iasis, unspecifi ed;Record ed Elsewhere : No Locati on: [facility] So urce: EHR Chron ic: N Practic e ID: 0001 Bill able Time: 03:22:43 PM Not Available [facility] 0 19:06:36 Screening for malignant neoplasm of cervix Active 2011 Screening for malignant neoplasms of the cervix;Re corded Elsewhere : No Locati on: [facility] So urce: EHR Chron ic: N Practic e ID: 0001 Bill able Time: 01:00:00 PM Not Available [facility] 0 19:06:36 test positive 989891512 Active 2011 examinati on or test, positive result;Re corded Elsewhere : No Locati on: [facility] So urce: EHR Chron ic: N Practic e ID: 0001 Bill able Time: 01:00:00 PM Not Available [facility] 0 19:06:36 Uterine size for dates discrepan cy 902020149 Active 2011 UTERINE SIZE KIT-ANTEP AR;Record ed Elsewhere : No Locati on: [facility] So urce: EHR Chron ic: N Practic e ID: 0001 Bill able Time: 11:45:00 AM Not Available [facility] 0 19:06:36 Primigrav martell 066512347 Active 2012 Supervisi on of normal first ;Recorded Elsewhere : No Locati on: [facility] So urce: EHR Chron ic: N Practic e ID: 0001 Bill able Time: 02:45:00 PM Not Available [facility] 0 19:06:36 Complicat ion of , childbirt h and/or puerperiu m 007684074 Active 2012 Other current condition s classifia ble elsewhere of mother, antepartu m;Practic e ID: 0001 Not Available [facility] 0 19:06:37 Abdominal pain 18860331 Active 2012 Abdominal pain, unspecifi ed site;Prac zizy ID: 0001 Not Available [facility] 0 19:06:37 Labor and delivery complicat ed by heart rate anomaly 313048893 Active 2012 HEART RATE NON REASSURIN G;Practic e ID: 0001 Not Available [facility] 0 19:06:37 Ill-defin ed intestina l infection Active 2012 No Show Fee;Pract ice ID: 0001 Not Available [facility] 0 19:06:37 Delivery normal 77710640 Active 2012 Normal delivery; Practice ID: 0001 Not Available [facility] 0 19:06:37 Single live from jama 570362793 Active 2012 Mother with single liveborn; Practice ID: 0001 Not Available [facility] 0 19:06:37 Postpartu m care Active 2012 Routine postpartu m follow-up ;Recorded Elsewhere : No Locati on: [facility] So urce: EHR Chron ic: N Practic e ID: 0001 Bill able Time: 09:30:00 AM Not Available [facility] 0 19:06:38 Ultrasono graphy Active 2012 screening for malformat ion using ultrasoni cs;Record ed Elsewhere : No Locati on: [facility] So urce: EHR Chron ic: N Practic e ID: 0001 Bill able Time: 02:30:00 PM Not Available [facility] 0 19:06:38 screening Active 2012 screening for malformat ion using ultrasoni cs;Record ed Elsewhere : No Locati on: [facility] So urce: EHR Chron ic: N Practic e ID: 0001 Bill able Time: 02:30:00 PM Not Available [facility] 0 19:06:38 Congenita l malformat ion 881943039 Active 2012 screening for malformat ion using ultrasoni cs;Record ed Elsewhere : No Locati on: [facility] So urce: EHR Chron ic: N Practic e ID: 0001 Bill able Time: 02:30:00 PM Not Available [facility] 0 19:06:38 Urinary tract infectiou s disease 32347065 Active 2011 Urinary Tract Infection ;Recorded Elsewhere : No Locati on: [facility] So urce: EHR Chron ic: N Practic e ID: 0001 Bill able Time: 01:00:00 PM Not Available [facility] 0 19:[facility]:[address] Concept Active 2017 Encntr for general adult medical exam w/o abnormal findings; Recorded Elsewhere : No Locati on: [facility] So urce: EHR Chron ic: N Practic e ID: 0001 Bill able Time: 10:30:00 AM Not Available [facility] 0 19:06:38 anatomy study Active 2012 SCRN [facility] SURVEY;Re corded Elsewhere : No Locati on: [facility] So urce: EHR Chron ic: N Practic e ID: 0001 Bill able Time: 02:00:00 PM Not Available [facility] 0 19:06:38 51730283 Active 2023 Viji Atkinson [facility], [facility] 4 15:07:44 Velamento insertion of umbilical cord 47715291 Active Juan Miguel Rich MD [address], [place], [address], [facility] 5 11:16:58 Problem Notes None recorded. Procedures Surgical History Date Name Laterality Status Provider Name and Address Organization Details Recorded Time 02/09/2018 Date of Last Pap Smear completed Viji Atkinson [facility] 05/25/2024 15:12:19 Imaging Results None recorded. Procedure Notes None recorded. Medical Equipment None Reported. Allergies No known drug allergies Medications Name Sig Start Date Stop Date Status Note LastModified by Organization Details LastModified Time Flagyl 500 mg tablet take 4 tablets by oral route all at once 05/02 completed Prescrib ed Elsewher e: No Locat ion: Isidro johnson [facility] odify By: jlgreen Madeline r DateTime : 03/01/20 18 03:22:43 PM Not Available Not Available Not Available pantopraz ole 40 mg tablet,de layed release TAKE 1 TABLET BY MOUTH EVERY DAY active Not Available Not Available No t Available Vitamin D2 1,250 mcg (50,000 unit) capsule take 1 capsule (31898AD ITS) by oral route every week 12/22 completed Prescrib ed Elsewher e: No Locat ion: Isidro johnson [facility] odify By: maximiliano story DateTime : 09/09/19 13 10:20:20 AM Not Available Not Available Not Available Augmentin 500 mg-125 mg tablet take 1 tablet by oral route every 12 hours 12/22 completed Prescrib ed Elsewher e: No [facility] By: maximiliano story DateTime : 05/10/20 [...] Prescrib ed Elsewher e: Yes [facility] By: maximiliano story DateTime : 12/23/19 13 09:30:00 AM Not Available Not Available Not Available Triveen-D uo DHA 29 mg-1 mg-400 mg oral pack take 2 by Oral route every day for 30 days 06/02 completed Prescrib ed Elsewher e: No [facility] By: dilip story DateTime : 05/04/20 12 01:00:00 PM Not Available Not Available Not Available Vitals Date Recorded Body height Body mass index (BMI) Body weight Systolic blood pressure Diastolic blood pressure Systolic blood pressure Diastolic blood pressure Systolic blood pressure Diastolic blood pressure Provider Name and Address Organization Details Last Updated DateTime 5 157.48 cm 33.8 kg/m2 98333.5 9 g 160 mm[Hg] 108 mm[Hg] 157 mm[Hg] 107 mm[Hg] 162 mm[Hg] 102 mm[Hg] Viji Atkinson [facility] 5 17:48:43 Social History Question Answer Notes LastModified by Organizat ion Details LastModified Time Do You Have An Advance Directive? No Information n ot available 05/12/2024 Are You Blind Or Do You Have Difficulty Seeing? No [email or web address] Information n ot available 05/02/2024 What Is Your Level Of Caffeine Consumption? Occasional [email or web address] Information not available 05/12/2024 In The 14 Days Before Symptom Onset, Have You Had Close Contact With A Laboratory-confirm ed COVID-19 While That Case Was Ill? No [email or web address] Information n ot available 05/02/2024 In The 14 Days Before Symptom Onset, Have You Had Close Contact With A Person Who Is Under Investigation For COVID-19 While That Person Was Ill? No [email or web address] Information not available 05/02/2024 Have You Been To An Area Known To Be High Risk For COVID-19? No [email or web address] Information not available 05/02/2024 Are You Deaf Or Do You Have Serious Difficulty Hearing? No [email or web address] Information not available 05/02/2024 What Type Of Diet Are You Following? REGULAR [email or web address] Information n ot available 05/12/2024 What Is The Highest Grade Or Level Of School You Have Completed Or The Highest Degree You Have Received? [id number] [email or web address] Information not available 05/12/2024 Are There Any Guns Present In Your Home? No [email or web address] Information not available 05/12/2024 Do You Use Protection During Sex? No [email or web address] Information not available 05/12/2024 Do You Use Your Seat Belt Or Car Seat Routinely? Yes [email or web address] Information not available 05/02/2024 Are You Sexually Active? Yes [email or web address] Information not available 05/02/2024 Do You Have Smoke And Carbon Monoxide Detectors In Your Home? Yes [email or web address] Information not available 05/02/2024 How Much Tobacco Do You Smoke? No [email or web address] Information not available 05/12/2024 Do You Use Sunscreen Routinely? Yes [email or web address] Information not available 05/02/2024 Have You Used IV Drugs? No [email or web address] Information not available 05/12/2024 Do You Have Difficulty Walking Or Climbing Stairs? No [email or web address] Information not available 05/02/2024 Sex: Unknown Functional Status Question Answer Note LastModified by Organizat ion Details LastModified Time Do you use any illicit or recreational drugs? No [email or web address] Information not available 05/02/2024 What is your level of alcohol consumption? None [email or web address] Information not available 05/12/2024 Are you able to walk? YESWOREST [email or web address] Information not available 05/02/2024 Are you able to care for yourself? No [email or web address] Information n ot available 05/02/2024 What is your occupation? Unemployed [email or web address] Information not available 05/12/2024 Do you have difficulty dressing or bathing? No [email or web address] Information not available 05/02/2024 What is your exercise level? None [email or web address] Information not available 05/02/2024 Mental Status Question Answer Note LastModified by Organization D etails LastModified Time Do you feel stressed (tense, restless, nervous, or anxious, or unable to sleep at night)? [id number] [email or web address] Information not available 05/12/2024 Family History Relationship Description Onset Age of this Age Resolved Age Notes LastModified by Organization Details LastModified Time Father Malignant tumor of colon [email or web address] Not available 2023 11:18:19 Mother Hypertensive disorder [email or web address] Not available 2023 11:18:30 Notes:Father: Cancer, colon Maternal grandfather: Hypertension Paternal grandfather: Cancer, colon Paternal grandmother: Cancer, breast Medical History Condition Response Other N Blood Transfusion N Dermatologic Disorders N Gestational Diabetes N Anxiety Disorder N Autoimmune disease N Arthritis N Polyps N Infertility N Acid Reflux (GERD) N Cancer N Varicosities N Stroke N Neurologic/Epilepsy N Fibromyalgia N Headaches N Kidney Disease N Heart Problems N Kidney or Bladder Problems N Eating Disorder N Art (IVF or FET) N Hepatitis/Liver Disease N No Past Medical History Y Urinary Tract Infection N Asthma N Trauma/Violence N Thrombophilias N Allergies (Food, seasonal, environmental ) N Breast Cancer N Drug/Latex Allergies/Reactions N Lung Disease N Defects or Inherited Disease N Breast Problem N Hematologic disorders N Anesthesia Complications N History of STI N Deep Vein Thrombosis N Polycystic ovary syndrome N History of abnormal pap N Endometriosis N High Cholesterol N Thyroid Problems N GI Problems N Anemia N Psychiatric Illness N Ovarian Cancer N Diabetes N Pulmonary (TB, Asthma) N Eczema N Abuse/Domestic Violence N Depression/ depression N Heart Disease N Pre-Eclampsia N Hypertension N Osteoporosis N Gynecological History Statement/Question Response Abnormal Pap [...] SNOMED-CT Code Diagnosis ICD10 Code Diagnosis Note [id number] Juan Miguel Rich MD [place] [address],[place] [address] 10/16/2024 11:52:23 10/16/2024 12:50:32 Velamentous insertion of umbilical cord 46319303 O43.123 Z3A.32 [id number] Juan Miguel Rich MD [place] [address] [place] [address] 10/16/2024 11:52:47 10/16/2024 13:15:05 care status 704299036 Z34.83 [id number] MD Zenon Lott [address],[place] [address] 11/03/2024 10:36:41 11/05/2024 23:40:37 [id number] Juan Miguel Rich MD [place] [address],[place] [address] 11/08/2024 16:44:28 11/08/2024 17:56:51 care status [id number] Z34.83 Health Concerns Section Related Observation LastModified by Organization Detai ls LastModified Time None Recorded Concern Status LastModified by Organization Details LastModified Time None Recorded Payers Encounter Date Sequence Insurance Name Policy Number Policy Jennings Covered Member ID Jennings Member ID Guarantor Name 11/08/2024 1 [facility] (MEDICAID HMO) [id number] Phill Muller [id number] Phill Muller OBGyn Episode Ob Episode Information Episode Created Date Number of Fetuses Patient Bloodtype Patient rh Status Prepregnancy Weight lbs Domestic Partner Domestic Partner Phone Father Name Patient Assessment Coordinator Status 05/25/20 24 1 A Positive 169 OPEN Fetus Data First Name Last Name Admitted to NICU Weight (g) Sex Living Outcome Pediatric Complications Fetus ID Race Codes Race Delivery Type [id number] Problems Problem Notes Elevated PCR Problem Name Start Date End Date Resolution Snomed Code Not e Velamentous insertion of umb ilical cord 82372027 Sergey Calculation Initial Sergey Date Initial Exam [...] Gestation 0 [email or web address] 05/25/2024 12/07/19 25 0 Pre-acrolyn Flowsheet Flowsheet Date 05/25/2024 Terrazas Score Blood Edema Fundus Height Fundus Units Glucose Ketones Leukocytes Nitrite Labor Signs Protein Cervic Dilation Cervic Effacement Cervic Station Type Weight in lbs Pre/Post Dialysis Refused Weight 166.163681338279 BP Diastolic BP Location Tested BP Systolic [...] Type Weight in lbs Pre/Post Dialysis Refused 168.227538679127 BP Diastolic BP Location Tested BP Systolic [...] Type Weight in lbs Pre/Post Dialysis Refused 170.081061014967 BP Diastolic BP Location Tested BP Systolic [...] Weight in lbs Pre/Post Dialysis Refused Weight 179.940973276658 BP Diastolic BP Location Tested BP Systolic [...] Type Weight in lbs Pre/Post Dialysis Refused 184.207683743001 BP Diastolic BP Location Tested BP Systolic [...] Type Weight in lbs Pre/Post Dialysis Refused 185.112338473984 BP Diastolic BP Location Tested BP Systolic [...] Weight in lbs Pre/Post Dialysis Refused Weight 184.873335347216 BP Diastolic BP Location Tested BP Systolic [...] Rate Present Fetus Movement Comments Flowsheet Date 11/08/2024 Terrazas Score Blood Edema Fundus Height Fundus Units Glucose Ketones Leukocytes Nitrite Labor Signs Protein Cervic Dilation Cervic Effacement Cervic Station Type Weight in lbs Pre/Post Dialysis Refused Weight 185.106190961127 BP Diastolic BP Location Tested BP Systolic BP Type 108 L arm 160 sitting 107 R arm 157 sitting 102 R arm 162 sitting Fetus Heart Rate Present Fetus Movement Comments patient is sent to labor and delivery for extended monitoring. Menstrual History Last Menstrual Date Menses Monthly [...]
--- OUTSIDE RECORDS SUMMARY | 2024-11-08 18:16 | XMS_ITS | Data Portability ---
Author Organization [facility] [place] Address [address] [place] [address] [place] [address] Assessment Encounter Date Assessment Date Assessment LastModified [...] Procedures None recorded. Surgeries None recorded. Imaging US, obstetric , follow-up 2024 025 [email or web address] [place] [address], [address], [place], [address], 10/16/2024 21:14:53 Medication Orders None recorded. Patient TargetsNo targets recorded. Patient InstructionsNo instructions recorded. Reason for Referral None Reported. Results Created Date Observation Date Name Description Value Unit Range Abnormal Flag Note LastModifiedBy Organization Detail LastModifiedTime 09/19/1909/18/2024 HEMOG LOBIN (HGB) HGB 9.9 g/dL (based on docume nted legal sex) 11.6-1 5.4 low Not Available [facility] (Lab) [address], [place], [address], 09/19/2024 10:44:01 09/19/19 25 09/18/2024 HEMAT OCRIT (HCT) HCT 29.6 % (based on docume nted legal sex) 34.0-4 5.0 low Not Available [facility] (Lab) [address] [facility], [place], [address], 09/19/2024 10:44:02 09/19/19 25 09/18/2024 GTT - GESTA KARINA L SCREE N, ACOG OB glucose, 1 hour screen 113 mg/dL 70-[address] [facility] (Lab) [address] [facility], [place], [address], 09/19/2024 10:44:02 09/19/19 25 09/18/2024 HIV 1/2 ANTIG EN/AN TIBOD Y, REFLE X CONFI RMATI ON HIV antigen/anti body Nonrea ctive nonrea ctive HIV-1 antig en and HIV-1 /HIV- 2 antib odies were not detec uday. No labor atory evide nce of HIV infec tion. Not Available [facility] (Lab) [address] [facility] [address], [place], [address], 09/19/2024 10:44:02 09/19/19 25 09/18/2024 RPR SCREE N, REFLE X TITER /CONF IRMAT ION RPR qualitative Nonrea ctive nonrea ctive Not Available [facility] (Lab) [address] [facility] [address], [place], [address], 09/19/2024 10:44:03 09/19/19 25 09/18/2024 US, obste tric, follo w-up No observ ation record ed. [facility] [place] [address], [place], [address], 09/18/2024 17:12:51 09/19/19 25 09/18/2024 US, obste tric, follo w-up No observ ation record ed. [email or web address] [address], [place], [address], 09/25/2024 16:00:38 10/17/19 25 10/16/2024 US, obste tric, follo w-up No observ ation record ed. [email or web address] [place] [address], [place], [address], 10/16/2024 18:14:32 10/17/19 25 10/16/2024 US, obste tric, follo w-up No observ ation record ed. [email or web address] [address], [place], [address], 10/17/2024 15:03:57 Result Notes None recorded. Problems Name Problem SNOMED Code Status Onset Date Resolution Date Notes Provider Name and Address Organization Details Recorded Time Dysmenorr hea 324311754 Active 2012 Dysmenorr hea;Pract ice ID: 0001 Not Available [facility] 0 19:06:35 Irregular intermens trual bleeding 00658788 Active 2012 Metrorrha bishnu;Pract ice ID: 0001 Not Available [facility] 0 19:06:35 Family planning surveilla nce Active 2012 Surveilla nce of other contracep tive method;Pr actice ID: 0001 Not Available [facility] 0 19:06:[address] Concept Active 2017 Encntr for karate black belt exam (general) (routine) w/o abn findings; Practice ID: 0001 Not Available [facility] 0 19:06:35 Removal of intrauter ine device Active 2017 Encounter for removal of intrauter ine contracep tive device;Pr actice ID: 0001 Not Available [facility] 0 19:06:35 Threatene d miscarria 90521992 Active 2018 Threatene d ; Practice ID: 0001 Not Available [facility] 0 19:06:35 Gestation less than 9 weeks 744394393 Active 2018 Less than 8 weeks gestation of ;Practice ID: 0001 Not Available [facility] 0 19:06:35 test negative 135815670 Active 2012 examinati on or test, negative result;Re corded Elsewhere : No Locati on: [facility] So urce: EHR Chron ic: N Practic e ID: 0001 Bill able Time: 02:30:00 PM Not Available [facility] 0 19:06:36 Insertion of intrauter ine contracep tive device Active 2012 INSERTION OF IUD;Recor ded Elsewhere : No Locati on: [facility] So urce: EHR Chron ic: N Practic e ID: 0001 Bill able Time: 02:30:00 PM Not Available [facility] 0 19:06:36 Specializ ed medical examinati on Active 2011 Gynecolog ical Examinati on;Record ed Elsewhere : No Locati on: [facility] So urce: EHR Chron ic: N Practic e ID: 0001 Bill able Time: 01:00:00 PM Not Available [facility] 0 19:06:36 Infection by Trichomon as 47309361 Active 2017 Trichomon iasis, unspecifi ed;Record ed Elsewhere : No Locati on: [facility] So urce: EHR Chron ic: N Practic e ID: 0001 Bill able Time: 03:22:43 PM Not Available [facility] 0 19:06:36 Screening for malignant neoplasm of cervix Active 2011 Screening for malignant neoplasms of the cervix;Re corded Elsewhere : No Locati on: [facility] So urce: EHR Chron ic: N Practic e ID: 0001 Bill able Time: 01:00:00 PM Not Available [facility] 0 19:06:36 test positive 203764341 Active 2011 examinati on or test, positive result;Re corded Elsewhere : No Locati on: [facility] So urce: EHR Chron ic: N Practic e ID: 0001 Bill able Time: 01:00:00 PM Not Available [facility] 0 19:06:36 Uterine size for dates discrepan cy 615257651 Active 2011 UTERINE SIZE KIT-ANTEP AR;Record ed Elsewhere : No Locati on: [facility] So urce: EHR Chron ic: N Practic e ID: 0001 Bill able Time: 11:45:00 AM Not Available [facility] 0 19:06:36 Primigrav martell 205167369 Active 2012 Supervisi on of normal first ;Recorded Elsewhere : No Locati on: [facility] So urce: EHR Chron ic: N Practic e ID: 0001 Bill able Time: 02:45:00 PM Not Available [facility] 0 19:06:36 Complicat ion of , childbirt h and/or puerperiu m 743836733 Active 2012 Other current condition s classifia ble elsewhere of mother, antepartu m;Practic e ID: 0001 Not Available [facility] 0 19:06:37 Abdominal pain 19932987 Active 2012 Abdominal pain, unspecifi ed site;Prac izzy ID: 0001 Not Available [facility] 0 19:06:37 Labor and delivery complicat ed by heart rate anomaly 407580691 Active 2012 HEART RATE NON REASSURIN G;Practic e ID: 0001 Not Available [facility] 0 19:06:37 Ill-defin ed intestina l infection Active 2012 No Show Fee;Pract ice ID: 0001 Not Available [facility] 0 19:06:37 Delivery normal 71589968 Active 2012 Normal delivery; Practice ID: 0001 Not Available [facility] 0 19:06:37 Single live from jama 665425040 Active 2012 Mother with single liveborn; Practice ID: 0001 Not Available [facility] 0 19:06:37 Postpartu m care Active 2012 Routine postpartu m follow-up ;Recorded Elsewhere : No Locati on: [facility] So urce: EHR Chron ic: N Practic e ID: 0001 Bill able Time: 09:30:00 AM Not Available [facility] 0 19:06:38 Ultrasono graphy Active 2012 screening for malformat ion using ultrasoni cs;Record ed Elsewhere : No Locati on: [facility] So urce: EHR Chron ic: N Practic e ID: 0001 Bill able Time: 02:30:00 PM Not Available [facility] 0 19:06:38 screening Active 2012 screening for malformat ion using ultrasoni cs;Record ed Elsewhere : No Locati on: [facility] So urce: EHR Chron ic: N Practic e ID: 0001 Bill able Time: 02:30:00 PM Not Available [facility] 0 19:06:38 Congenita l malformat ion 448764987 Active 2012 screening for malformat ion using ultrasoni cs;Record ed Elsewhere : No Locati on: [facility] So urce: EHR Chron ic: N Practic e ID: 0001 Bill able Time: 02:30:00 PM Not Available [facility] 0 19:06:38 Urinary tract infectiou s disease 47216080 Active 2011 Urinary Tract Infection ;Recorded Elsewhere : No Locati on: [facility] So urce: EHR Chron ic: N Practic e ID: 0001 Bill able Time: 01:00:00 PM Not Available [facility] 0 19:06:[address] Concept Active 2017 Encntr for general adult medical exam w/o abnormal findings; Recorded Elsewhere : No Locati on: [facility] So urce: EHR Chron ic: N Practic e ID: 0001 Bill able Time: 10:30:00 AM Not Available [facility] 0 19:06:38 anatomy study Active 2012 SCRN [facility] SURVEY;Re corded Elsewhere : No Locati on: [facility] So urce: EHR Chron ic: N Practic e ID: 0001 Bill able Time: 02:00:00 PM Not Available [facility] 0 19:06:38 03458386 Active 2023 Viji [email or web address] [place] - [facility] 4 15:07:44 Velamento us insertion of umbilical cord 25015443 Active Juan Miguel Rich MD [address], [place], [address], [place] [facility] 5 11:16:58 Problem Notes None recorded. Procedures Surgical History Date Name Laterality Status Provider Name and Address Organization Details Recorded Time 02/09/2018 Date of Last Pap Smear completed Viji Atkinson [facility] 05/25/2024 15:12:19 Imaging Results None recorded. Procedure Notes None recorded. Medical Equipment None Reported. Allergies No known drug allergies Medications Name Sig Start Date Stop Date Status Note LastModified by Organization Details LastModified Time Flagyl 500 mg tablet take 4 tablets by oral route all at once 05/02 completed Prescrib ed Elsewher e: No Locat ion: [facility] odify By: patricia reyes DateTime : 03/01/20 18 03:22:43 PM Not Available Not Available Not Available pantopraz ole 40 mg tablet,de layed release TAKE 1 TABLET BY MOUTH EVERY DAY active Not Available Not Available No t Available Vitamin D2 1,250 mcg (50,000 unit) capsule take 1 capsule (25342ZT ITS) by oral route every week 12/22 completed Prescrib ed Elsewher e: No Locat ion: [facility] odify By: maximiliano story DateTime : 09/09/19 13 10:20:20 AM Not Available Not Available Not Available Augmentin 500 mg-125 mg tablet take 1 tablet by oral route every 12 hours 12/22 completed Prescrib ed Elsewher e: No Locat ion: [facility] odify By: maximiliano story DateTime [...] Prescrib ed Elsewher e: Yes Loca tion: Yu amairani [facility] odify By: maximiliano Amairani ncounter DateTime : 12/23/19 13 09:30:00 AM Not Available Not Available Not Available Maria Victoria-Antoinette uo DHA 29 mg-1 mg-400 mg oral pack take 2 by Oral route every day for 30 days 06/02 completed Prescrib ed [facility] e: No Locat ion: [facility] amairani [facility] odify By: dilip Johnson ncounter DateTime : 05/04/20 12 01:00:00 PM Not Available Not Available Not Available Vitals Date Recorded Body weight Systolic blood pressure Diastolic blood pressure Provider Name and Address Organization Details Last Updated DateTime 10/05/2024 47851.5884 5 g 145 mm[Hg] 90 mm[Hg] [facility] 10/05/2024 11:32:07 Date Recorded Body height Body mass index (BMI) Body weight Systolic blood pressure Diastolic blood pressure Provider Name and Address Organization Details Last Updated DateTime 10/16/2024 157.48 cm 33.7 kg/m2 27407 g 148 mm[Hg] 86 mm[Hg] [facility] 12:56:36 Date Recorded Body height Body mass index (BMI) Body weight Systolic blood pressure Diastolic blood pressure Systolic blood pressure Diastolic blood pressure Systolic blood pressure Diastolic blood pressure Provider Name and Address Organization Details Last Updated DateTime 157.48 cm 33.8 kg/m2 18525.5 9 g 160 mm[Hg] 108 mm[Hg] 157 mm[Hg] 107 mm[Hg] 162 mm[Hg] 102 mm[Hg] [facility] 17:48:43 Social History Question Answer Notes LastModified by Organizat ion Details LastModified Time Do You Have An Advance Directive? No Information n ot available 05/12/2024 Are You Blind Or Do You Have Difficulty Seeing? No [email or web address] Information n ot available 05/02/2024 What Is Your Level Of Caffeine Consumption? Occasional [email or web address] Information not available 05/12/2024 In The 14 Days Before Symptom Onset, Have You Had Close Contact With A Laboratory-confirm ed COVID-19 While That Case Was Ill? No Information n ot available 05/02/2024 In The 14 Days Before Symptom Onset, Have You Had Close Contact With A Person Who Is Under Investigation For COVID-19 While That Person Was Ill? No [email or web address] Information not available 05/02/2024 Have You Been To An Area Known To Be High Risk For COVID-19? No [email or web address] Information not available 05/02/2024 Are You Deaf Or Do You Have Serious Difficulty Hearing? No [email or web address] Information not available 05/02/2024 What Type Of Diet Are You Following? REGULAR [email or web address] Information n ot available 05/12/2024 What Is The Highest Grade Or Level Of School You Have Completed Or The Highest Degree You Have Received? DI46250-2 [email or web address] Information not available 05/12/2024 Are There Any Guns Present In Your Home? No Information not available 05/12/2024 Do You Use Protection During Sex? No [email or web address] Information not available 05/12/2024 Do You Use Your Seat Belt Or Car Seat Routinely? Yes [email or web address] Information not available 05/02/2024 Are You Sexually Active? Yes [email or web address] Information not available 05/02/2024 Do You Have Smoke And Carbon Monoxide Detectors In Your Home? Yes [email or web address] Information not available 05/02/2024 How Much Tobacco Do You Smoke? No [email or web address] Information not available 05/12/2024 Do You Use Sunscreen Routinely? Yes [email or web address] Information not available 05/02/2024 Have You Used IV Drugs? No Information not available 05/12/2024 Do You Have Difficulty Walking Or Climbing Stairs? No [email or web address] Information not available 05/02/2024 Sex: Unknown Functional Status Question Answer Note LastModified by Organizat ion Details LastModified Time Do you use any illicit or recreational drugs? No [email or web address] Information not available 05/02/2024 What is your level of alcohol consumption? None [email or web address] Information not available 05/12/2024 Are you able to walk? YESWOREST [email or web address] Information not available 05/02/2024 Are you able to care for yourself? No [email or web address] Information n ot available 05/02/2024 What is your occupation? Unemployed [email or web address] Information not available 05/12/2024 Do you have difficulty dressing or bathing? No [email or web address] Information not available 05/02/2024 What is your exercise level? None [email or web address] Information not available 05/02/2024 Mental Status Question Answer Note LastModified by Organization D etails LastModified Time Do you feel stressed (tense, restless, nervous, or anxious, or unable to sleep at night)? [id number] [email or web address] Information not available 05/12/2024 Family History Relationship Description Onset Age of this Age Resolved Age Notes LastModified by Organization Details LastModified Time Father Malignant tumor of colon Not available 2023 11:18:19 Mother Hypertensive disorder [email or web address] Not available 2023 11:18:30 Notes:Father: Cancer, colon Maternal grandfather: Hypertension Paternal grandfather: Cancer, colon Paternal grandmother: Cancer, breast Medical History Condition Response Allergies (Food, seasonal, environmental ) N Other N Breast Cancer N Drug/Latex Allergies/Reactions N Blood Transfusion N Lung Disease N Dermatologic Disorders N Defects or Inherited Disease N Breast Problem N Gestational Diabetes N Hematologic disorders N Anesthesia Complications N History of STI N Deep Vein Thrombosis N Polycystic ovary syndrome N Anxiety Disorder N Autoimmune disease N Arthritis N Polyps N Infertility N History of abnormal pap N Acid Reflux (GERD) N Cancer N Varicosities N Stroke N Neurologic/Epilepsy N Endometriosis N High Cholesterol N Fibromyalgia N Headaches N Kidney Disease [...] SNOMED-CT Code Diagnosis ICD10 Code Diagnosis Note [id number] Juan Miguel Rich MD [place] [address],[place] [address] 05/02/2024 11:02:45 05/02/2024 11:40:21 [id number] SHARI TAVERAS MD [place] [address],[place] [address] 05/02/2024 11:14:07 05/04/2024 11:30:31 [id number] SHARI TAVERAS MD [place] [address],[place] [address] 05/12/2024 09:34:30 05/12/2024 10:15:51 screening 596426860 Z36.0 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 Exam today within normal limits.2. Ultrasound 05/02 confirms GA and viability. EDC . GC/Clamydi a testing done: will f/u as indicated. 4. ACOG guidelines and plan of care for reviewed with patient. All questions answered.5 . Return to office at 12 weeks for new OB visit6. Will need new OB labs drawn today.7. Genetic screening: desires, will draw today [id number] MD Zenon Lott [address],[place] [address] 05/25/2024 14:03:20 05/25/2024 15:08:48 screening 276111776 Z36.82 Z3A.12 [id number] MD Zenon Lott [address],[place] [address] 05/25/2024 14:03:41 05/25/2024 15:56:37 Routine care 529226699 Z34.90 [id number] MD Zenon Lott [address],[place] [address] 06/26/2024 09:33:57 06/26/2024 10:30:39 Routine care 349206413 Z34.90 [id number] MD Zenon Lott [address],[place] [address] 07/24/2024 09:25:07 07/24/2024 10:37:56 screening for malformation 665400521 Z36.3 Z3A.20 [id number] MD Zenon Lott [address],[place] [address] 07/24/2024 09:25:19 07/24/2024 11:40:59 Gastroesophageal reflux disease 660470416 K21.00 Routine an tenatal care 044446895 Z34.90 [id number] MD Zenon Lott [address],[place] [address] 08/21/2024 09:25:46 08/21/2024 10:12:54 screening 325887910 Z36.2 O43.122 Z3A.24 [id number] MD Zenon Lott [address],[place] [address] 08/21/2024 09:25:58 08/21/2024 11:06:35 Routine care 962103543 Z34.90 [id number] MD Zenon Lott [address],[place] [address] 09/18/2024 09:26:25 09/18/2024 10:11:01 Velamentous insertion of umbilical cord 12494050 O43.123 Z3A.28 [id number] MD Zenon Lott [address],[place] [address] 09/18/2024 09:26:47 09/18/2024 10:59:01 care status 759154275 Z34.83 [id number] MD Zenon Lott [address],[place] [address] 10/05/2024 11:04:56 10/05/2024 11:46:16 care status 444428120 Z34.83 [id number] MD Zenon Lott [address],[place] [address] 10/16/2024 11:52:23 10/16/2024 12:50:32 Velamentous insertion of umbilical cord 90637793 O43.123 Z3A.32 [id number] MD Zenon Lott [address],[place] [address] 10/16/2024 11:52:47 10/16/2024 13:15:05 care status 166078543 Z34.83 [id number] MD Zenon Lott [address],[place] [address] 11/03/2024 10:36:41 11/05/2024 23:40:37 [id number] Juan Miguel Rich MD [facility] [address],[place] [address] 11/08/2024 16:44:28 11/08/2024 17:56:51 care status 699534145 Z34.83 Health Concerns Section Related Observation LastModified by Organization Detai ls LastModified Time None Recorded Concern Status LastModified by Organization Details LastModified Time None Recorded Advance Directives Directive N: Payers Encounter Date Sequence Insurance Name Policy Number Policy Jennings Covered Member ID Jennings Member ID Guarantor Name 10/05/2024 1 [facility] (MEDICAID HMO) [id number] Phill Muller [id number] Phill Muller 10/16/2024 1 [facility] (MEDICAID HMO) [id number] Phill Muller [id number] Phill Muller 10/16/2024 1 [facility] (MEDICAID HMO) [id number] Phill Muller [id number] Phill Muller 11/03/2024 1 [facility] (MEDICAID HMO) [id number] Phill Muller [id number] Phill Muller 11/08/2024 1 [facility] (MEDICAID HMO) [id number] Phill Muller [id number] Phill Muller OBGyn Episode Ob Episode Information Episode Created Date Number of Fetuses Patient Bloodtype Patient rh Status Prepregnancy Weight lbs Domestic Partner Domestic Partner Phone Father Name [employer] Floor[employer] Status 05/25/20 24 1 CLOSED Fetus Data First Name Last Name Admitted to NICU Weight (g) Sex Living Outcome Pediatric Complications Fetus ID Race Codes Race Delivery Type 2806.37 3704 M Prematur e 11517 Vaginal Delivery Sergey Calculation Initial Sergey Date [...] Domestic Partner Domestic Partner Phone Father Name [employer] Floor[employer] Status 05/02/20 24 1 CLOSED Fetus Data First Name Last Name Admitted to NICU Weight (g) Sex Living Outcome Pediatric Complications Fetus ID Race Codes Race Delivery Type , Spontane ous 66849 Sergey Calculation Initial Sergey Date Initial Exam [...] Domestic Partner Domestic Partner Phone Father Name [employer] Floor[employer] Status 05/25/20 24 1 A Positive 169 OPEN Fetus Data First Name Last Name Admitted to NICU Weight (g) Sex Living Outcome Pediatric Complications Fetus ID Race Codes Race Delivery Type [id number] Problems Problem Notes Elevated PCR Problem Name Start Date End Date Resolution Snomed Code Not e Velamentous insertion of umb ilical cord 74336154 Sergey Calculation Initial Sergey Date Initial Exam [...] Gestation 0 [email or web address] 05/25/2024 12/07/19 25 0 Pre-carolyn Flowsheet Flowsheet Date 05/25/2024 Terrazas Score Blood Edema Fundus Height Fundus Units Glucose Ketones Leukocytes Nitrite Labor Signs Protein Cervic Dilation Cervic Effacement Cervic Station Type Weight in lbs Pre/Post Dialysis Refused Weight 166.524996394661 BP Diastolic BP Location Tested BP Systolic [...] Type Weight in lbs Pre/Post Dialysis Refused 168.713524966628 BP Diastolic BP Location Tested BP Systolic [...] Type Weight in lbs Pre/Post Dialysis Refused 170.421360519761 BP Diastolic BP Location Tested BP Systolic [...] Weight in lbs Pre/Post Dialysis Refused Weight 179.273004111718 BP Diastolic BP Location Tested BP Systolic [...] Type Weight in lbs Pre/Post Dialysis Refused 184.764406961834 BP Diastolic BP Location Tested BP Systolic [...] Type Weight in lbs Pre/Post Dialysis Refused 185.922439386842 BP Diastolic BP Location Tested BP Systolic [...] Weight in lbs Pre/Post Dialysis Refused Weight 184.939477501224 BP Diastolic BP Location Tested BP Systolic [...] Weight in lbs Pre/Post Dialysis Refused Weight 185.393412237361 BP Diastolic BP Location Tested BP Systolic [...] Domestic Partner Domestic Partner Phone Father Name [employer] Floor[employer] Status 05/02/20 24 1 DELETED Sergey Calculation Initial Sregey Date Initial Exam Date Initial Exam Provider [...]
[2024-11-08 18:18] LABS: Prothrombin Time 12.9 Seconds (11.1-14.7)
[2024-11-08 18:19] LABS: Creatinine Urine 68.5 mg/dL; Fibrinogen 579 mg/dl (215-510); Partial Thromboplastin Time 21.8 Seconds (22.3-36.8); Total Protein Urine Random 27 mg/dL; Ur Ttl Prot Creatinine Ratio 0.39 mg/mg (0-0.20)
[2024-11-08 18:20] LABS: Alanine Aminotransferase 12 U/L (6-35); Albumin Level 3.7 g/dL (3.5-5.1); Alkaline Phosphatase 138 U/L (38-126); Anion Gap 6 mmol/L (4-12); Aspartate Amino Transferase 19 U/L (14-36); Bilirubin,Total 0.3 mg/dL (0.2-1.3); Blood Urea Nitrogen 2 mg/dL (7-17); Calcium 8.8 mg/dL (8.4-10.2); Carbon Dioxide 18 mmol/L (22-30); Chloride 108 mmol/L (98-107); Estimated Glomerular Filt Rate > 60; Glucose 85 mg/dL (65-110); Potassium 3.7 mmol/L (3.4-5.0); Sodium 132 mmol/L (137-145); Total Protein 7.3 g/dL (6.3-8.2)
[2024-11-08 18:27] LABS: D Dimer 0.89 ug/mL (<0.48)
[2024-11-08] MEDS: BETAMETHASONE SOD PHOS/ACETATE 30 MG/5 ML VIAL 12 MG IM (18:45)
== END 2024-11-08 18:50 | disposition home or self-care (01) ==
LOC: ANHOBOP 16:55 → ANHOBPP 16:56
PROVIDERS: Visit Provider Obstetrics & Gynecology
DX: O13.9 Gestational [pregnancy-induced] hypertension without significant proteinuria, unspecified trimester (principal); Z3A.00 Weeks of gestation of pregnancy not specified
CPT/HCPCS: 36415; 59025; 80053; 81001; 82570; 84156; 84550; 85025; 85380; 85384; 85610; 85730; 96372; 99199; J0702

== ENCOUNTER 2024-11-09 18:22 | Outpatient (CLI) | payer OTHER, SELFPAY ==
--- OUTSIDE RECORDS SUMMARY | 2024-11-09 18:31 | XMS_ITS | Data Portability ---
Author Organization [facility] [place] Address [address] [place] [address] Assessment Encounter Date Assessment Date Assessment LastModified by Organization Details LastModified Time 10/05/2024 10/05/2024 Patient is ___weeks . Discussed plan. Not available 10/05/2024 11:31:30 10/16/2024 10/16/2024 Patient is ___weeks . Discussed plan. Not available 10/16/2024 12:54:40 Plan of Treatment Reminders Order Date Submit Date Provider Last Modified By Organization Details Last Modified Time Details Appointments BLOOD PRESSURE CHECK 2024 03:30P M Ronna Sanders CNM Not available Not available Not available Lab None recorded. Referral None recorded. Procedures None recorded. Surgeries None recorded. Imaging US, obstetric , follow-up 2024 025 [email or web address] [place], [facility] [address], [address], [place], [address], 10/16/2024 21:14:53 Medication Orders None recorded. Patient TargetsNo targets recorded. Patient InstructionsNo instructions recorded. Reason for Referral None Reported. Results Created Date Observation Date Name Description Value Unit Range Abnormal Flag Note LastModifiedBy Organization Detail LastModifiedTime 09/19/1909/18/2024 HEMOG LOBIN (HGB) HGB 9.9 g/dL (based on docume nted legal sex) 11.6-1 5.4 low Not Available [facility] (Lab) [address], [place], [address], 09/19/2024 10:44:01 09/19/19 25 09/18/2024 HEMAT OCRIT (HCT) HCT 29.6 % (based on docume nted legal sex) 34.0-4 5.0 low Not Available [facility] (Lab) [address] [facility], [place], [address], 09/19/2024 10:44:02 09/19/19 25 09/18/2024 GTT - GESTA KARINA L SCREE N, ACOG OB glucose, 1 hour screen 113 mg/dL 70-135 Not Available [facility] (Lab) [address] [facility], [place], [address], 09/19/2024 10:44:02 09/19/19 25 09/18/2024 HIV 1/2 ANTIG EN/AN TIBOD Y, REFLE X CONFI RMATI ON HIV antigen/anti body Nonrea ctive nonrea ctive HIV-1 antig en and HIV-1 /HIV- 2 antib odies were not detec uday. No labor atory evide nce of HIV infec tion. Not Available [facility] (Lab) [address] [facility] [address] [facility], [place], [address], 09/19/2024 10:44:02 09/19/19 25 09/18/2024 RPR SCREE N, REFLE X TITER /CONF IRMAT ION RPR qualitative Nonrea ctive nonrea ctive Not Available [facility] (Lab) [address] [facility] [address] [facility], [place], [address], 09/19/2024 10:44:03 09/19/19 25 09/18/2024 US, obste tric, follo w-up No observ [facility]ion [facility] [address], [place], [address], 09/18/2024 17:12:51 09/19/19 25 09/18/2024 US, obste tric, follo w-up No observ ation record ed. [email or web address] [address], [place], [address], 09/25/2024 16:00:38 10/17/19 25 10/16/2024 US, obste tric, follo w-up No observ ation record ed. [email or web address] [place] [address], [place], [address], 10/16/2024 18:14:32 10/17/19 25 10/16/2024 US, obste tric, follo w-up No observ ation record ed. [email or web address] [address], [place], [address], 10/17/2024 15:03:57 Result Notes None recorded. Problems Name Problem SNOMED Code Status Onset Date Resolution Date Notes Provider Name and Address Organization Details Recorded Time Dysmenorr hea 006181166 Active 2012 Dysmenorr hea;Pract ice ID: 0001 Not Available [facility] 0 19:06:35 Irregular intermens trual bleeding 60980499 Active 2012 Metrorrha bishnu;Pract ice ID: 0001 Not Available [facility] 0 19:06:35 Family planning surveilla nce Active 2012 Surveilla nce of other contracep tive method;Pr actice ID: 0001 Not Available [facility] 0 19:06:[address] Concept Active 2017 Encntr for cloth folder hand exam (general) (routine) w/o abn findings; Practice ID: 0001 Not Available [facility] 0 19:06:35 Removal of intrauter ine device Active 2017 Encounter for removal of intrauter ine contracep tive device;Pr actice ID: 0001 Not Available [facility] 0 19:06:35 Threatene d miscarria 91382900 Active 2018 Threatene d ; Practice ID: 0001 Not Available [facility] 0 19:06:35 Gestation less than 9 weeks 044101612 Active 2018 Less than 8 weeks gestation of ;Practice ID: 0001 Not Available [facility] 0 19:06:35 test negative 246436957 Active 2012 examinati on or test, negative result;Re corded Elsewhere : No Locati on: [facility] So urce: EHR Chron ic: N Practic e ID: 0001 Bill able Time: 02:30:00 PM Not Available [facility] 0 19:06:36 Insertion of intrauter ine contracep tive device Active 2012 INSERTION OF IUD;Recor ded Elsewhere : No Locati on: [facility] So urce: EHR Chron ic: N Practic e ID: 0001 Bill able Time: 02:30:00 PM [facility] Available [facility] 0 19:06:36 Specializ ed medical examinati on Active 2011 Gynecolog ical Examinati on;Record ed Elsewhere : No Locati on: [facility] So urce: EHR Chron ic: N Practic e ID: 0001 Bill able Time: 01:00:00 PM Not Available [facility] 0 19:06:36 Infection by Trichomon as 60503436 Active 2017 Trichomon iasis, unspecifi ed;Record ed Elsewhere : No Locati on: [facility] So urce: EHR Chron ic: N Practic e ID: 0001 Bill able Time: 03:22:43 PM [facility] 0 19:06:36 Screening for malignant neoplasm of cervix Active 2011 Screening for malignant neoplasms of the cervix;Re corded Elsewhere : No Locati on: [facility] So urce: EHR Chron ic: N Practic e ID: 0001 Bill able Time: 01:00:00 PM Not Available [facility] 0 19:06:36 test positive 919674669 Active 2011 examinati on or test, positive result;Re corded Elsewhere : No Locati on: [facility] So urce: EHR Chron ic: N Practic e ID: 0001 Bill able Time: 01:00:00 PM Not Available [facility] 0 19:06:36 Uterine size for dates discrepan cy 578603545 Active 2011 UTERINE SIZE KIT-ANTEP AR;Record ed Elsewhere : No Locati on: [facility] So urce: EHR Chron ic: N Practic e ID: 0001 Bill able Time: 11:45:00 AM Not Available [facility] 0 19:06:36 Primigrav martell 569231744 Active 2012 Supervisi on of normal first ;Recorded Elsewhere : No Locati on: [facility] So urce: EHR Chron ic: N Practic e ID: 0001 Bill able Time: 02:45:00 PM Not Available [facility] 0 19:06:36 Complicat ion of , childbirt h and/or puerperiu m 240666243 Active 2012 Other current condition s classifia ble elsewhere of mother, antepartu m;Practic e ID: 0001 Not Available [facility] 0 19:06:37 Abdominal pain 42807590 Active 2012 Abdominal pain, unspecifi ed site;Prac izzy ID: 0001 Not Available [facility] 0 19:06:37 Labor and delivery complicat ed by heart rate anomaly 404322592 Active 2012 HEART RATE NON REASSURIN G;Practic e ID: 0001 Not Available [facility] 0 19:06:37 Ill-defin ed intestina l infection Active 2012 No Show Fee;Pract ice ID: 0001 Not Available [facility] 0 19:06:37 Delivery normal 60978591 Active 2012 Normal delivery; Practice ID: 0001 Not Available [facility] 0 19:06:37 Single live from jama 679477336 Active 2012 Mother with single liveborn; Practice ID: 0001 Not Available [facility] 0 19:06:37 Postpartu m care Active 2012 Routine postpartu m follow-up ;Recorded Elsewhere : No Locati on: [facility] So urce: EHR Chron ic: N Practic e ID: 0001 Bill able Time: 09:30:00 AM Not Available [facility] 0 19:06:38 Ultrasono graphy Active 2012 screening for malformat ion using ultrasoni cs;Record ed Elsewhere : No Locati on: [facility] So urce: EHR Chron ic: N Practic e ID: 0001 Bill able Time: 02:30:00 PM Not Available [facility] 0 19:06:38 screening Active 2012 screening for malformat ion using ultrasoni cs;Record ed Elsewhere : No Locati on: [facility] So urce: EHR Chron ic: N Practic e ID: 0001 Bill able Time: 02:30:00 PM Not Available [facility] 0 19:06:38 Congenita l malformat ion 068703913 Active 2012 screening for malformat ion using ultrasoni cs;Record ed Elsewhere : No Locati on: [facility] So urce: EHR Chron ic: N Practic e ID: 0001 Bill able Time: 02:30:00 PM [facility] 0 19:06:38 Urinary tract infectiou s disease 99250261 Active 2011 Urinary Tract Infection ;Recorded Elsewhere : No Locati on: [facility] So urce: EHR Chron ic: N Practic e ID: 0001 Bill able Time: 01:00:00 PM Not Available [facility] 0 19:06:[address] Concept Active 2017 Encntr for general adult medical exam w/o abnormal findings; Recorded Elsewhere : No Locati on: [facility] So urce: EHR Chron ic: N Practic e ID: 0001 Bill able Time: 10:30:00 AM Not Available [facility] 0 19:06:38 anatomy study Active 2012 SCRN [facility] SURVEY;Re corded Elsewhere : No Locati on: [facility] So urce: EHR Chron ic: N Practic e ID: 0001 Bill able Time: 02:00:00 PM Not Available [facility] 0 19:06:38 90673991 Active 2023 Viji zendejas [place] - [facility] 4 15:07:44 Velamento us insertion of umbilical cord 06869075 Active Juan Miguel Rich MD [address], [place], [address], [place] [facility] 5 11:16:58 Pre-eclam psia 172256451 Active 2024 Nicole zendejas, [facility] 5 12:47:32 Problem Notes None recorded. Procedures Surgical History Date Name Laterality Status Provider Name and Address Organization Details Recorded Time 02/09/2018 Date of Last Pap Smear completed Viji Atkinson [facility] 05/25/2024 15:12:19 Imaging Results None recorded. Procedure Notes None recorded. Medical Equipment None Reported. Allergies No known drug allergies Medications Name Sig Start Date Stop Date Status Note LastModified by Organization Details LastModified Time Flagyl 500 mg tablet take 4 tablets by oral route all at once 05/02 completed Prescrib ed Elsewher e: No Locat ion: [facility]ify By: patricia reyes DateTime : 03/01/20 18 03:22:43 PM Not Available Not Available Not Available pantopraz ole 40 mg tablet,de layed release TAKE 1 TABLET BY MOUTH EVERY DAY active Not Available Not Available No t Available Vitamin D2 1,250 mcg (50,000 unit) capsule take 1 capsule (40626QR ITS) by oral route every week 12/22 completed Prescrib ed Elsewher e: No Locat ion: [facility] By: maximiliano story DateTime : 09/09/19 13 10:20:20 AM Not Available Not Available Not Available Augmentin 500 mg-125 mg tablet take 1 tablet by oral route every 12 hours 12/22 completed Prescrib ed Elsewher e: No Locat ion: [facility] By: maximiliano sahauntjose f DateTime : 05/10/20 12 11:45:00 AM Not [...] Prescrib ed Elsewher e: Yes Loca tion: [facility] By: maximiliano story DateTime : 12/23/19 13 09:30:00 AM Not Available Not Available Not Available Triveen-D uo DHA 29 mg-1 mg-400 mg oral pack take 2 by Oral route every day for 30 days 06/02 completed Prescrib ed Elsewher e: No Locat ion: [facility] By: dilip sahaunter DateTime : 05/04/20 12 01:00:00 PM Not Available Not Available Not Available Vitals Date Recorded Body weight Systolic blood pressure Diastolic blood pressure Provider Name and Address Organization Details Last Updated DateTime 10/05/2024 00566.5884 5 g 145 mm[Hg] 90 mm[Hg] [facility] 10/05/2024 11:32:07 Date Recorded Body height Body mass index (BMI) Body weight Systolic blood pressure Diastolic blood pressure Provider Name and Address Organization Details Last Updated DateTime 10/16/2024 157.48 cm 33.7 kg/m2 25225 g 148 mm[Hg] 86 mm[Hg] [facility] 12:56:36 Date Recorded Body height Body mass index (BMI) Body weight Systolic blood pressure Diastolic blood pressure Systolic blood pressure Diastolic blood pressure Systolic blood pressure Diastolic blood pressure Provider Name and Address Organization Details Last Updated DateTime 157.48 cm 33.8 kg/m2 72636.5 9 g 160 mm[Hg] 108 mm[Hg] 157 mm[Hg] 107 mm[Hg] 162 mm[Hg] 102 mm[Hg] [facility] 17:48:43 Social History Question Answer Notes LastModified by Organizat ion Details LastModified Time Do You Have An Advance Directive? No [email or web address] Information n ot available 05/12/2024 Are You Blind Or Do You Have Difficulty Seeing? No [email or web address] Information n ot available 05/02/2024 What Is Your Level Of Caffeine Consumption? Occasional Information not available 05/12/2024 In The 14 Days Before Symptom Onset, Have You Had Close Contact With A Laboratory-confirm ed COVID-19 While That Case Was Ill? No [email or web address] Information n ot available 05/02/2024 In The 14 Days Before Symptom Onset, Have You Had Close Contact With A Person Who Is Under Investigation For COVID-19 While That Person Was Ill? No [email or web address] Information not available 05/02/2024 Have You Been To An Area Known To Be High Risk For COVID-19? No [email or web address] Information not available 05/02/2024 Are You Deaf Or Do You Have Serious Difficulty Hearing? No [email or web address] Information not available 05/02/2024 What Type Of Diet Are You Following? REGULAR Information n ot available 05/12/2024 What Is The Highest Grade Or Level Of School You Have Completed Or The Highest Degree You Have Received? AU63358-8 [email or web address] Information not available 05/12/2024 Are There Any Guns Present In Your Home? No [email or web address] Information not available 05/12/2024 Do You Use Protection During Sex? No [email or web address] Information not available 05/12/2024 Do You Use Your Seat Belt Or Car Seat Routinely? Yes [email or web address] Information not available 05/02/2024 Are You Sexually Active? Yes [email or web address] Information not available 05/02/2024 Do You Have Smoke And Carbon Monoxide Detectors In Your Home? Yes [email or web address] Information not available 05/02/2024 How Much Tobacco Do You Smoke? No [email or web address] Information not available 05/12/2024 Do You Use Sunscreen Routinely? Yes [email or web address] Information not available 05/02/2024 Have You Used IV Drugs? No [email or web address] Information not available 05/12/2024 Do You Have Difficulty Walking Or Climbing Stairs? No [email or web address] Information not available 05/02/2024 Sex: Unknown Functional Status Question Answer Note LastModified by Organizat ion Details LastModified Time Do you use any illicit or recreational drugs? No [email or web address] Information not available 05/02/2024 What is your level of alcohol consumption? None [email or web address] Information not available 05/12/2024 Are you able to walk? YESWOREST [email or web address] Information not available 05/02/2024 Are you able to care for yourself? No [email or web address] Information n ot available 05/02/2024 What is your occupation? Unemployed [email or web address] Information not available 05/12/2024 Do you have difficulty dressing or bathing? No Information not available 05/02/2024 What is your exercise level? None [email or web address] Information not available 05/02/2024 Mental Status Question Answer Note LastModified by Organization D etails LastModified Time Do you feel stressed (tense, restless, nervous, or anxious, or unable to sleep at night)? [id number] Information not available 05/12/2024 Family History Relationship Description Onset Age of this Age Resolved Age Notes LastModified by Organization Details LastModified Time Father Malignant tumor of colon [email or web address] Not available 2023 11:18:19 Mother Hypertensive disorder [email or web address] Not available 2023 11:18:30 Notes:Father: Cancer, colon [...] SNOMED-CT Code Diagnosis ICD10 Code Diagnosis Note [id number] Juan Miguel Rich MD [place] [address],[place] [address] 05/02/2024 11:02:45 05/02/2024 11:40:21 [id number] SHARI TAVERAS MD [place] [address],[place] [address] 05/02/2024 11:14:07 05/04/2024 11:30:31 [id number] SHARI TAVERAS MD [place] [address],[place] [address] 05/12/2024 09:34:30 05/12/2024 10:15:51 screening 467984571 Z36.0 Genetic in vestigation procedure 59821039 Z31.430 test positive 905350750 Z32.01 1. Exam today within normal limits.2. Ultrasound 05/02 confirms GA and viability. EDC . GC/Claverndi a testing done: will f/u as indicated. 4. ACOG guidelines and plan of care for reviewed with patient. All questions answered.5 . Return to office at 12 weeks for new OB visit6. Will need new OB labs drawn today.7. Genetic screening: desires, will draw today [id number] MD Zenon Lott [address],[place] [address] 05/25/2024 14:03:20 05/25/2024 15:08:48 screening 359525742 Z36.82 Z3A.12 [id number] Juan Miguel Rich MD [place] [address],[place] [address] 05/25/2024 14:03:41 05/25/2024 15:56:37 Routine care 960127765 Z34.90 [id number] MD Zenon Lott [address],[place] [address] 06/26/2024 09:33:57 06/26/2024 10:30:39 Routine care 458900453 Z34.90 [id number] MD Zenon Lott [address],[place] [address] 07/24/2024 09:25:07 07/24/2024 10:37:56 screening for malformation 263430440 Z36.3 Z3A.20 [id number] MD Zenon Lott [address],[place] [address] 07/24/2024 09:25:19 07/24/2024 11:40:59 Gastroesophageal reflux disease 461978265 K21.00 Routine an tenatal care 794071239 Z34.90 [id number] MD Zenon Lott [address],[place] [address] 08/21/2024 09:25:46 08/21/2024 10:12:54 screening 068633015 Z36.2 O43.122 Z3A.24 [id number] MD Zenon Lott [address],[place] [address] 08/21/2024 09:25:58 08/21/2024 11:06:35 Routine care 551458728 Z34.90 [id number] MD Zenon Lott [address],[place] [address] 09/18/2024 09:26:25 09/18/2024 10:11:01 Velamentous insertion of umbilical cord 75001550 O43.123 Z3A.28 [id number] MD Zenon Ltot [address],[place] [address] 09/18/2024 09:26:47 09/18/2024 10:59:01 care status 396072612 Z34.83 [id number] MD Zenon Lott [address],[place] [address] 10/05/2024 11:04:56 10/05/2024 11:46:16 care status 454784469 Z34.83 [id number] MD Zenon Lott [address],[place] [address] 10/16/2024 11:52:23 10/16/2024 12:50:32 Velamentous insertion of umbilical cord 65246194 O43.123 Z3A.32 [id number] MD Zenon Lott [address],[place] [address] 10/16/2024 11:52:47 10/16/2024 13:15:05 care status 249680311 Z34.83 [id number] MD Zenon Lott [address],[place] [address] 11/03/2024 10:36:41 11/05/2024 23:40:37 [id number] MD Zenon Lott [address],[place] [address] 11/08/2024 16:44:28 11/09/2024 05:29:12 care status 735896484 Z34.83 Health Concerns Section Related Observation LastModified by Organization Detai ls LastModified Time None Recorded Concern Status LastModified by Organization Details LastModified Time None Recorded Advance Directives Directive N: Payers Insurance Date Sequence Insurance Name Policy Number Policy Jennings Covered Member ID Jennings Member ID Guarantor Name 11/07/2024 1 [facility] (MEDICAID HMO) [id number] Phill Muller [id number] Phill Muller OBGyn Episode Ob Episode Information Episode Created Date Number of Fetuses Patient Bloodtype Patient rh Status Prepregnancy Weight lbs Domestic Partner Domestic Partner Phone Father Name Preparation Center Coordinator Status 05/25/20 24 1 CLOSED Fetus Data First Name Last Name Admitted to NICU Weight (g) Sex Living Outcome Pediatric Complications Fetus ID Race Codes Race Delivery Type 2806.37 3704 M Prematur e 55160 Vaginal Delivery Sergey Calculation Initial Sergey Date [...] Domestic Partner Domestic Partner Phone Father Name Preparation Center Coordinator Status 05/02/20 24 1 CLOSED Fetus Data First Name Last Name Admitted to NICU Weight (g) Sex Living Outcome Pediatric Complications Fetus ID Race Codes Race Delivery Type , Spontane ous 50656 Sergey Calculation Initial Sergey Date Initial Exam [...] Domestic Partner Domestic Partner Phone Father Name Preparation Center Coordinator Status 05/25/20 24 1 A Positive 169 OPEN Fetus Data First Name Last Name Admitted to NICU Weight (g) Sex Living Outcome Pediatric Complications Fetus ID Race Codes Race Delivery Type [id number] Problems Problem Notes Elevated PCR Problem Name Start Date End Date Resolution Snomed Code Not e Velamentous insertion of umb ilical cord 73388334 Pre-eclampsia 11/09/2024 [id number] Sergey Calculation Initial Sergey Date Initial Exam [...] Weight in lbs Pre/Post Dialysis Refused Weight 166.556343471807 BP Diastolic BP Location Tested BP Systolic [...] Type Weight in lbs Pre/Post Dialysis Refused 168.926486033841 BP Diastolic BP Location Tested BP Systolic [...] Type Weight in lbs Pre/Post Dialysis Refused 170.331568411883 BP Diastolic BP Location Tested BP Systolic [...] Weight in lbs Pre/Post Dialysis Refused Weight 179.426135348820 BP Diastolic BP Location Tested BP Systolic [...] Type Weight in lbs Pre/Post Dialysis Refused 184.717297780162 BP Diastolic BP Location Tested BP Systolic [...] Type Weight in lbs Pre/Post Dialysis Refused 185.509693773386 BP Diastolic BP Location Tested BP Systolic [...] Weight in lbs Pre/Post Dialysis Refused Weight 184.771804066498 BP Diastolic BP Location Tested BP Systolic [...] Weight in lbs Pre/Post Dialysis Refused Weight 185.960177898799 BP Diastolic BP Location Tested BP Systolic [...] Domestic Partner Domestic Partner Phone Father Name Preparation Center Coordinator Status 05/02/20 24 1 DELETED Sergey Calculation [...]
--- OUTSIDE RECORDS SUMMARY | 2024-11-09 18:31 | XMS_ITS | Continuity of Care Document ---
Author Organization [facility] [place] Address [address] [place] [address] Assessment No assessment recorded. Plan of Treatment [...] cy No observ ation record ed. [email or web address] [place] [address], [place], [address], 05/25/2024 15:23:20 05/25/20 24 05/25/2024 US, obste tric, nucha l trans lucen cy No observ ation record ed. [email or web address] [address], [place], [address], 05/25/2024 21:17:36 07/24/19 25 07/24/2024 US, obste tric, 2nd or 3rd trime ster No observ ation record ed. [email or web address] [place] [address], [place], [address], 07/24/2024 13:11:54 07/24/19 25 07/24/2024 US, obste tric, follo w-up No observ ation record ed. [email or web address] [address], [place], [address], 08/02/2024 14:12:25 08/22/19 25 08/21/2024 US, obste tric, follo w-up No observ ation record ed. [email or web address] [place] [address], [place], [address], 08/21/2024 16:13:16 08/22/19 25 08/21/2024 US, obste tric, follo w-up No observ ation record ed. [address], [place], [address], 08/23/2024 22:57:33 09/19/19 25 09/18/2024 US, obste tric, follo w-up No observ ation record ed. [email or web address] [address], [place], [address], 09/18/2024 17:12:51 09/19/19 25 09/18/2024 US, obste tric, follo w-up No observ ation record ed. [email or web address] [address], [place], [address], 09/25/2024 16:00:38 10/17/19 25 10/16/2024 US, obste tric, follo w-up No observ ation record ed. [email or web address] [place] [address], [place], [address], 10/16/2024 18:14:32 10/17/19 25 10/16/2024 US, obste tric, follo w-up No observ ation record ed. [email or web address] [address], [place], [address], 10/17/2024 15:03:57 Result Notes None recorded. Problems Name Problem SNOMED Code Status Onset Date Resolution Date Notes Provider Name and Address Organization Details Recorded Time Dysmenorr hea 356583431 Active 2012 Dysmenorr hea;Pract ice ID: 0001 Not Available [facility] 0 19:06:35 Irregular intermens trual bleeding 03276057 Active 2012 Metrorrha bishnu;Pract ice ID: 0001 Not Available [facility] 0 19:06:35 Family planning surveilla nce Active 2012 Surveilla nce of other contracep tive method;Pr actice ID: 0001 Not Available [facility] 0 [facility] Concept Active 2017 Encntr for party plan demonstrator exam (general) (routine) w/o abn findings; Practice ID: 0001 Not Available [facility] 0 19:06:35 Removal of intrauter ine device Active 2017 Encounter for removal of intrauter ine contracep tive device;Pr actice ID: 0001 Not Available [facility] 0 19:06:35 Threatene d miscarria ge 80668284 Active 2018 Threatene d ; Practice ID: 0001 Not Available [facility] 0 19:06:35 Gestation less than 9 weeks 193724164 Active 2018 Less than 8 weeks gestation of ;Practice ID: 0001 Not Available [facility] 0 19:06:35 test negative 999123846 Active 2012 examinati on or test, negative result;Re corded Elsewhere : No Locati on: [facility] So urce: EHR Chron ic: N Practic e ID: 0001 Bill able Time: 02:30:00 PM Not Available [facility] 0 19:06:36 Insertion of intrauter ine contracep tive device Active 2012 INSERTION OF IUD;Recor ded Elsewhere : No Locati on: [facility] So urce: EHR Chron ic: N Practic e ID: 0001 Bill able Time: 02:30:00 PM Not Available [facility] 0 19:06:36 Specializ ed medical examinati on Active 2011 Gynecolog ical Examinati on;Record ed Elsewhere : No Locati on: [facility] So urce: EHR Chron ic: N Practic e ID: 0001 Bill able Time: 01:00:00 PM Not Available [facility] 0 19:06:36 Infection by Trichomon as 02865469 Active 2017 Trichomon iasis, unspecifi ed;Record ed Elsewhere : No Locati on: [facility] So urce: EHR Chron ic: N Practic e ID: 0001 Bill able Time: 03:22:43 PM Not Available [facility] 0 19:06:36 Screening for malignant neoplasm of cervix Active 2011 Screening for malignant neoplasms of the cervix;Re corded Elsewhere : No Locati on: [facility] So urce: EHR Chron ic: N Practic e ID: 0001 Bill able Time: 01:00:00 PM Not Available [facility] 0 19:06:36 test positive 828390083 Active 2011 examinati on or test, positive result;Re corded Elsewhere : No Locati on: [facility] So urce: EHR Chron ic: N Practic e ID: 0001 Bill able Time: 01:00:00 PM Not Available [facility] 0 19:06:36 Uterine size for dates discrepan cy 936476600 Active 2011 UTERINE SIZE KIT-ANTEP AR;Record ed Elsewhere : No Locati on: [facility] So urce: EHR Chron ic: N Practic e ID: 0001 Bill able Time: 11:45:00 AM Not Available [facility] 0 19:06:36 Primigrav martell 815696156 Active 2012 Supervisi on of normal first ;Recorded Elsewhere : No Locati on: [facility] So urce: EHR Chron ic: N Practic e ID: 0001 Bill able Time: 02:45:00 PM Not Available [facility] 0 19:06:36 Complicat ion of , childbirt h and/or puerperiu m 423158643 Active 2012 Other current condition s classifia ble elsewhere of mother, antepartu m;Practic e ID: 0001 Not Available [facility] 0 19:06:37 Abdominal pain 10962571 Active 2012 Abdominal pain, unspecifi ed site;Prac izzy ID: 0001 Not Available [facility] 0 19:06:37 Labor and delivery complicat ed by heart rate anomaly 758228716 Active 2012 HEART RATE NON REASSURIN G;Practic e ID: 0001 Not Available [facility] 0 19:06:37 Ill-defin ed intestina l infection Active 2012 No Show Fee;Pract ice ID: 0001 Not Available [facility] 0 19:06:37 Delivery normal 94256694 Active 2012 Normal delivery; Practice ID: 0001 Not Available [facility] 0 19:06:37 Single live from jama 576306728 Active 2012 Mother with single liveborn; Practice ID: 0001 Not Available [facility] 0 19:06:37 Postpartu m care Active 2012 Routine postpartu m follow-up ;Recorded Elsewhere : No Locati on: [facility] So urce: EHR Chron ic: N Practic e ID: 0001 Bill able Time: 09:30:00 AM Not Available [facility] 0 19:06:38 Ultrasono graphy Active 2012 screening for malformat ion using ultrasoni cs;Record ed Elsewhere : No Locati on: [facility] So urce: EHR Chron ic: N Practic e ID: 0001 Bill able Time: 02:30:00 PM Not Available [facility] 0 19:06:38 screening Active 2012 screening for malformat ion using ultrasoni cs;Record ed Elsewhere : No Locati on: [facility] So urce: EHR Chron ic: N Practic e ID: 0001 Bill able Time: 02:30:00 PM Not Available [facility] 0 19:06:38 Congenita l malformat ion 406436221 Active 2012 screening for malformat ion using ultrasoni cs;Record ed Elsewhere : No Locati on: [facility] So urce: EHR Chron ic: N Practic e ID: 0001 Bill able Time: 02:30:00 PM Not Available [facility] 0 19:06:38 Urinary tract infectiou s disease 15161497 Active 2011 Urinary Tract Infection ;Recorded Elsewhere : No Locati on: [facility] So urce: EHR Chron ic: N Practic e ID: 0001 Bill able Time: 01:00:00 PM Not Available [facility] 0 19:06:[address] Concept Active 2017 Encntr for general adult medical exam w/o abnormal findings; Recorded Elsewhere : No Locati on: [facility] So urce: EHR Chron ic: N Practic e ID: 0001 Bill able Time: 10:30:00 AM Not Available [facility] 0 19:06:38 anatomy study Active 2012 S[facility]N [facility] SURVEY;Re corded Elsewhere : No Locati on: [facility] So urce: EHR Chron ic: N Practic e ID: 0001 Bill able Time: 02:00:00 PM Not Available [facility] 0 19:06:38 32200611 Active 2023 Viji zendejas [facility] 4 15:07:44 Velamento us insertion of umbilical cord 95344360 Active Juan Miguel Rich MD [address], [place], [address], [facility] 5 11:16:58 Pre-eclam psia 927947818 Active 2024 Nicole zendejas [facility] 5 12:47:32 Problem Notes None recorded. Procedures Surgical History Date Name Laterality Status Provider Name and Address Organization Details Recorded Time 02/09/2018 Date of Last Pap Smear completed Viji Atkinson [facility] 05/25/2024 15:12:19 Imaging Results None recorded. Procedure Notes None recorded. Medical Equipment None Reported. Allergies No known drug allergies Medications Name Sig Start Date Stop Date Status Note LastModified by Organization Details LastModified Time Flagyl 500 mg tablet take 4 tablets by oral route all at once 05/02 completed Prescrib ed Elsewher e: No Locat ion: [facility] odify By: patricia reyes DateTime : 03/01/20 18 03:22:43 PM Not Available Not Available Not Available pantopraz ole 40 mg tablet,de layed release TAKE 1 TABLET BY MOUTH EVERY DAY active Not Available Not Available No t Available Vitamin D2 1,250 mcg (50,000 unit) capsule take 1 capsule (32484HY ITS) by oral route every week 12/22 completed Prescrib ed Elsewher e: No [facility]at [facility]ify By: maximiliano story DateTime : 09/09/19 13 10:20:20 AM Not Available Not Available Not Available Augmentin 500 mg-125 mg tablet take 1 tablet by oral route every 12 hours 12/22 completed Prescrib ed Elsewher e: No [facility]at ion: [facility] By: maximiliano story DateTime [...] Elsewher e: Yes Loca tion: [facility] odify By: maximiliano story DateTime : 12/23/19 13 09:30:00 AM Not Available Not Available Not Available Triveen-D uo DHA 29 mg-1 mg-400 mg oral pack take 2 by Oral route every day for 30 days 06/02 completed Prescrib ed Elsewher e: No Locat ion: [facility] odify By: dilip story DateTime : 05/04/20 12 01:00:00 PM Not Available Not Available Not Available Vitals Date Recorded Body height Body mass index (BMI) Body weight Systolic blood pressure Diastolic blood pressure Systolic blood pressure Diastolic blood pressure Systolic blood pressure Diastolic blood pressure Provider Name and Address Organization Details Last Updated DateTime 5 157.48 cm 33.8 kg/m2 23582.5 9 g 160 mm[Hg] 108 mm[Hg] 157 mm[Hg] 107 mm[Hg] 162 mm[Hg] 102 mm[Hg] Viji Atkinson [facility] 5 17:48:43 Social History Question Answer Notes LastModified by Organizat ion Details LastModified Time Do You Have An Advance Directive? No [email or web address] Information n ot available 05/12/2024 Are You Blind Or Do You Have Difficulty Seeing? No [email or web address] Information n ot available 05/02/2024 What Is Your Level Of Caffeine Consumption? Occasional Information not available 05/12/2024 In The 14 Days Before Symptom Onset, Have You Had Close Contact With A Laboratory-confirm ed COVID-19 While That Case Was Ill? No [email or web address] Information n ot available 05/02/2024 In The 14 Days Before Symptom Onset, Have You Had Close Contact With A Person Who Is Under Investigation For COVID-19 While That Person Was Ill? No Information not available 05/02/2024 Have You Been To An Area Known To Be High Risk For COVID-19? No [email or web address] Information not available 05/02/2024 Are You Deaf Or Do You Have Serious Difficulty Hearing? No [email or web address] Information not available 05/02/2024 What Type Of Diet Are You Following? REGULAR [email or web address] Information n ot available 05/12/2024 What Is The Highest Grade Or Level Of School You Have Completed Or The Highest Degree You Have Received? [id number] Information not available 05/12/2024 Are There Any Guns Present In Your Home? No [email or web address] Information not available 05/12/2024 Do You Use Protection During Sex? No [email or web address] Information not available 05/12/2024 Do You Use Your Seat Belt Or Car Seat Routinely? Yes [email or web address] Information not available 05/02/2024 Are You Sexually Active? Yes Information not available 05/02/2024 Do You Have Smoke And Carbon Monoxide Detectors In Your Home? Yes Information not available 05/02/2024 How Much Tobacco Do You Smoke? No [email or web address] Information not available 05/12/2024 Do You Use Sunscreen Routinely? Yes [email or web address] Information not available 05/02/2024 Have You Used IV Drugs? No Information not available 05/12/2024 Do You Have Difficulty Walking Or Climbing Stairs? No [email or web address] Information not available 05/02/2024 Sex: Unknown Functional Status Question Answer Note LastModified by Organizat ion Details LastModified Time Do you use any illicit or recreational drugs? No [email or web address] Information not available 05/02/2024 What is your level of alcohol consumption? None Information not available 05/12/2024 Are you able to walk? YESWOREST [email or web address] Information not available 05/02/2024 Are you able to care for yourself? No [email or web address] Information n ot available 05/02/2024 What is your occupation? Unemployed Information not available 05/12/2024 Do you have difficulty dressing or bathing? No [email or web address] Information not available 05/02/2024 What is your exercise level? None [email or web address] Information not available 05/02/2024 Mental Status Question Answer Note LastModified by Organization D etails LastModified Time Do you feel stressed (tense, restless, nervous, or anxious, or unable to sleep at night)? [id number] [email or web address] Information not available 05/12/2024 Family History Relationship Description Onset Age of this Age Resolved Age Notes LastModified by Organization Details LastModified Time Father Malignant tumor of colon [email or web address] Not available 2023 11:18:19 Mother Hypertensive disorder [email or web address] Not available 2023 11:18:30 Notes:Father: Cancer, colon [...] SNOMED-CT Code Diagnosis ICD10 Code Diagnosis Note [id number] Juan Miguel Rich MD [place] [address] [address] 10/16/2024 11:52:23 10/16/2024 12:50:32 Velamentous insertion of umbilical cord 05213274 O43.123 Z3A.32 [id number] Juan Miguel Rich MD [place] [address] [address] 10/16/2024 11:52:47 10/16/2024 13:15:05 care status 951711331 Z34.83 [id number] MD Zenon Lott [address] [address] 11/03/2024 10:36:41 11/05/2024 23:40:37 [id number] Juan Miguel Rich MD [place] [address] [address] 11/08/2024 16:44:28 11/09/2024 05:29:12 care status 979836645 Z34.83 Health Concerns Section Related Observation LastModified by Organization Detai ls LastModified Time None Recorded Concern Status LastModified by Organization Details LastModified Time None Recorded Payers Encounter Date Sequence Insurance Name Policy Number Policy Jennings Covered Member ID Jennings Member ID Guarantor Name 11/08/2024 1 [facility] (MEDICAID HMO) [id number] Phlil Muller [id number] Phill Muller OBGyn Episode Ob Episode Information Episode Created Date Number of Fetuses Patient Bloodtype Patient rh Status Prepregnancy Weight lbs Domestic Partner Domestic Partner Phone Father Name Eap Consultant Status 05/25/20 24 1 A Positive 169 OPEN Fetus Data First Name Last Name Admitted to NICU Weight (g) Sex Living Outcome Pediatric Complications Fetus ID Race Codes Race Delivery Type [id number] Problems Problem Notes Elevated PCR Problem Name Start Date End Date Resolution Snomed Code Not e Velamentous insertion of umb ilical cord 10117412 Pre-eclampsia 11/09/2024 [id number] Sergey Calculation Initial Sergey Date Initial Exam [...] Weight in lbs Pre/Post Dialysis Refused Weight 166.528504072554 BP Diastolic BP Location Tested BP Systolic [...] Type Weight in lbs Pre/Post Dialysis Refused 168.656728232941 BP Diastolic BP Location Tested BP Systolic [...] Type Weight in lbs Pre/Post Dialysis Refused 170.817721279621 BP Diastolic BP Location Tested BP Systolic [...] Weight in lbs Pre/Post Dialysis Refused Weight 179.980760216477 BP Diastolic BP Location Tested BP Systolic [...] Type Weight in lbs Pre/Post Dialysis Refused 184.630373635803 BP Diastolic BP Location Tested BP Systolic [...] Type Weight in lbs Pre/Post Dialysis Refused 185.283703724137 BP Diastolic BP Location Tested BP Systolic [...] Weight in lbs Pre/Post Dialysis Refused Weight 184.985237238638 BP Diastolic BP Location Tested BP Systolic [...] Weight in lbs Pre/Post Dialysis Refused Weight 185.273425541678 BP Diastolic BP Location Tested BP Systolic [...]
--- OUTSIDE RECORDS SUMMARY | 2024-11-09 18:31 | XMS_ITS | Referral Summary ---
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 Care Teams Gray Mixing Operator Relationship Specialty Start Date End Date Unknown, Notinfile PCP - General 04/02/23
--- OUTSIDE RECORDS SUMMARY | 2024-11-09 18:31 | XMS_ITS | Clinical Summary ---
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
[2024-11-09] MEDS: BETAMETHASONE SOD PHOS/ACETATE 30 MG/5 ML VIAL 12 MG IM (18:42)
== END 2024-11-09 18:23 | disposition home or self-care (01) ==
LOC: ANHOBOP 18:29
PROVIDERS: Visit Provider Obstetrics & Gynecology
DX: Z3A.00 Weeks of gestation of pregnancy not specified (principal)
CPT/HCPCS: 96372; J0702

== ENCOUNTER 2024-11-10 16:14 | Outpatient (CLI) | payer OTHER, SELFPAY ==
--- OUTSIDE RECORDS SUMMARY | 2024-11-10 16:19 | XMS_ITS | Continuity of Care Document ---
Author Organization [facility] Address [address] [place] [address] Assessment Encounter Date Assessment Date Assessment LastModified by Organization Details LastModified Time 11/10/2024 11/10/2024 Patient is __36_weeks . Discussed plan. Not available 11/10/2024 17:11:08 Plan of Treatment Reminders Order Date Submit Date Provider Last Modified By Organization Details Last Modified Time Details Appointments BLOOD PRESSURE CHECK 2024 03:30P Allison Sanders CNM Not available Not available Not [...] cy No observ ation record ed. [email or web address] [facility] [address], [place], [address], 05/25/2024 15:23:20 05/25/20 24 05/25/2024 US, obste tric, nucha l trans lucen cy No observ ation record ed. [email or web address] [facility] [address], [place], [address], 05/25/2024 21:17:36 07/24/19 25 07/24/2024 US, obste tric, 2nd or 3rd trime ster No observ ation record ed. [email or web address] [facility] [address], [place], [address], 07/24/2024 13:11:54 07/24/19 25 07/24/2024 US, obste tric, follo w-up No observ ation record ed. [email or web address] [address], [place], [address], 08/02/2024 14:12:25 08/22/19 25 08/21/2024 US, obste tric, follo w-up No observ ation record ed. [email or web address] [facility] [address], [place], [address], 08/21/2024 16:13:16 08/22/19 25 08/21/2024 US, obste tric, follo w-up No observ ation record ed. [address], [place], [address], 08/23/2024 22:57:33 09/19/19 25 09/18/2024 US, obste tric, follo w-up No observ [facility]ion [facility] [address], [place], [address], 09/18/2024 17:12:51 09/19/19 25 09/18/2024 US, obste tric, follo w-up No observ ation record ed. [email or web address] [address], [place], [address], 09/25/2024 16:00:38 10/17/19 25 10/16/2024 US, obste tric, follo w-up No observ ation record ed. [email or web address] [facility] [address], [place], [address], 10/16/2024 18:14:32 10/17/19 25 10/16/2024 US, obste tric, follo w-up No observ ation record ed. [email or web address] [address], [place], [address], 10/17/2024 15:03:57 Result Notes None recorded. Problems Name Problem SNOMED Code Status Onset Date Resolution Date Notes Provider Name and Address Organization Details Recorded Time Dysmenorr hea 794836675 Active 2012 Dysmenorr hea;Pract ice ID: 0001 Not Available [facility] 0 19:06:35 Irregular intermens trual bleeding 21217854 Active 2012 Metrorrha bishnu;Pract ice ID: 0001 Not Available [facility] 0 19:06:35 Family planning surveilla nce Active 2012 Surveilla nce of other contracep tive method;Pr actice ID: 0001 Not Available [facility] 0 19:06:[address] Concept Active 2017 Encntr for sports marketer exam (general) (routine) w/o abn findings; Practice ID: 0001 Not Available [facility] 0 19:06:35 Removal of intrauter ine device Active 2017 Encounter for removal of intrauter ine contracep tive device;Pr actice ID: 0001 Not Available [facility] 0 19:06:35 Threatene d miscarria ge 19132444 Active 2018 Threatene d ; Practice ID: 0001 Not Available [facility] 0 19:06:35 Gestation less than 9 weeks 913616474 Active 2018 Less than 8 weeks gestation of ;Practice ID: 0001 Not Available [facility] 0 19:06:35 test negative 246144936 Active 2012 examinati on or test, negative result;Re corded Elsewhere : No Locati on: [facility] So urce: EHR Chron ic: N Practic e ID: 0001 Bill able Time: 02:30:00 PM Not Available [facility] 0 19:06:36 Insertion of intrauter ine contracep tive device Active 2012 INSERTION OF IUD;Recor ded Elsewhere : No Locati on: [facility] So urce: EHR Chron ic: N Practic e ID: 0001 Bill able Time: 02:30:00 PM Not Available [facility] 0 19:06:36 Specializ ed medical examinati on Active 2011 Gynecolog ical Examinati on;Record ed Elsewhere : No Locati on: [facility] So urce: EHR Chron ic: N Practic e ID: 0001 Bill able Time: 01:00:00 PM Not Available [facility] 0 19:06:36 Infection by Trichomon as 43441552 Active 2017 Trichomon iasis, unspecifi ed;Record ed Elsewhere : No Locati on: [facility] So urce: EHR Chron ic: N Practic e ID: 0001 Bill able Time: 03:22:43 PM Not Available [facility] 0 19:06:36 Screening for malignant neoplasm of cervix Active 2011 Screening for malignant neoplasms of the cervix;Re corded Elsewhere : No Locati on: [facility] So urce: EHR Chron ic: N Practic e ID: 0001 Bill able Time: 01:00:00 PM Not Available [facility] 0 19:06:36 test positive 733372535 Active 2011 examinati on or test, positive result;Re corded Elsewhere : No Locati on: [facility] So urce: EHR Chron ic: N Practic e ID: 0001 Bill able Time: 01:00:00 PM Not Available [facility] 0 19:06:36 Uterine size for dates discrepan cy 587795990 Active 2011 UTERINE SIZE KIT-ANTEP AR;Record ed Elsewhere : No Locati on: [facility] So urce: EHR Chron ic: N Practic e ID: 0001 Bill able Time: 11:45:00 AM Not Available [facility] 0 19:06:36 Primigrav martell 775391395 Active 2012 Supervisi on of normal first ;Recorded Elsewhere : No Locati on: [facility] So urce: EHR Chron ic: N Practic e ID: 0001 Bill able Time: 02:45:00 PM Not Available [facility] 0 19:06:36 Complicat ion of , childbirt h and/or puerperiu m 646806260 Active 2012 Other current condition s classifia ble elsewhere of mother, antepartu m;Practic e ID: 0001 Not Available [facility] 0 19:06:37 Abdominal pain 93780131 Active 2012 Abdominal pain, unspecifi ed site;Prac izzy ID: 0001 Not Available [facility] 0 19:06:37 Labor and delivery complicat ed by heart rate anomaly 628984335 Active 2012 HEART RATE NON REASSURIN G;Practic e ID: 0001 Not Available [facility] 0 19:06:37 Ill-defin ed intestina l infection Active 2012 No Show Fee;Pract ice ID: 0001 Not Available [facility] 0 19:06:37 Delivery normal 00408112 Active 2012 Normal delivery; Practice ID: 0001 Not Available [facility] 0 19:06:37 Single live from jama 499093898 Active 2012 Mother with single liveborn; Practice ID: 0001 Not Available [facility] 0 19:06:37 Postpartu m care Active 2012 Routine postpartu m follow-up ;Recorded Elsewhere : No Locati on: [facility] So urce: EHR Chron ic: N Practic e ID: 0001 Bill able Time: 09:30:00 AM Not Available [facility] 0 19:06:38 Ultrasono graphy Active 2012 screening for malformat ion using ultrasoni cs;Record ed Elsewhere : No Locati on: [facility] So urce: EHR Chron ic: N Practic e ID: 0001 Bill able Time: 02:30:00 PM Not Available [facility] 0 19:06:38 screening Active 2012 screening for malformat ion using ultrasoni cs;Record ed Elsewhere : No Locati on: [facility] So urce: EHR Chron ic: N Practic e ID: 0001 Bill able Time: 02:30:00 PM Not Available [facility] 0 19:06:38 Congenita l malformat ion 379139656 Active 2012 screening for malformat ion using ultrasoni cs;Record ed Elsewhere : No Locati on: [facility] So urce: EHR Chron ic: N Practic e ID: 0001 Bill able Time: 02:30:00 PM Not Available [facility] 0 19:06:38 Urinary tract infectiou s disease 93908239 Active 2011 Urinary Tract Infection ;Recorded Elsewhere : No Locati on: [facility] So urce: EHR Chron ic: N Practic e ID: 0001 Bill able Time: 01:00:00 PM Not Available [facility] 0 19:06:[address] Concept Active 2017 Encntr for general adult medical exam w/o abnormal findings; Recorded Elsewhere : No Locati on: [facility] So urce: EHR Chron ic: N Practic e ID: 0001 Bill able Time: 10:30:00 AM Not Available [facility] 0 19:06:38 anatomy study Active 2012 [facility] ANATMC SURVEY;Re corded Elsewhere : No Locati on: [facility] So urce: EHR Chron ic: N Practic e ID: 0001 Bill able Time: 02:00:00 PM Not Available [facility] 0 19:06:38 99026721 Active 2023 Viji zendejas, [facility] 4 15:07:44 Velamento us insertion of umbilical cord 40717219 Active Juan Miguel Rich MD [address], [place], [address], [facility] 5 11:16:58 Pre-eclam psia 874603299 Active 2024 Nicole zendejas, [facility] 5 12:47:32 Problem Notes None recorded. Procedures Surgical History Date Name Laterality Status Provider Name and Address Organization Details Recorded Time 05/25/2024 Date of Last Pap Smear completed Tracy Alanis [facility] 11/10/2024 16:55:57 Imaging Results None recorded. Procedure Notes None recorded. Medical Equipment None Reported. Allergies No known drug allergies Medications Name Sig Start Date Stop Date Status Note LastModified by Organization Details LastModified Time Flagyl 500 mg tablet take 4 tablets by oral route all at once 05/02 completed Prescrib ed Elsewher e: No Locat ion: [facility] odify By: patricia reyes DateTime : 03/01/20 18 03:22:43 PM Not Available Not Available Not Available pantopraz ole 40 mg tablet,de layed release TAKE 1 TABLET BY MOUTH EVERY DAY 11/10 completed Not Available Not Available Not Available Vitamin D2 1,250 mcg (50,000 unit) capsule take 1 capsule (95832WE ITS) by oral route every week 12/22 completed Prescrib ed Elsewher e: No Locat ion: [facility] odify By: maximiliano story DateTime : 09/09/19 13 10:20:20 AM Not Available Not Available Not Available Augmentin 500 mg-125 mg tablet take 1 tablet by oral route every 12 hours 12/22 completed Prescrib ed Elsewher e: No Locat ion: [facility] odify By: maximiliano story DateTime [...] Prescrib ed Elsewher e: Yes Loca tion: [facility] odify By: maximiliano story DateTime : 12/23/19 13 09:30:00 AM Not Available Not Available Not Available Triveen-D uo DHA 29 mg-1 mg-400 mg oral pack take 2 by Oral route every day for 30 days 06/02 completed Prescrib ed Elsewher e: No Locat ion: [facility] M odamarilys By: bostonmargarita Johnson pratikjose f DateTime : 05/04/20 01:00:00 PM Not Available Not Available Not Available Vitals Date Recorded Systolic blood pressure Diastolic blood pressure Provider Name and Address Organization Details Last Updated DateTime 11/10/2024 165 mm[Hg] 102 mm[Hg] Ronna Sanders, JOHANNA [address], [place], [address], [facility] 11/10/2024 17:10:38 Date Recorded Body weight Body mass index (BMI) Body height Systolic blood pressure Diastolic blood pressure Provider Name and Address Organization Details Last Updated DateTime 11/10/2024 68358.58 845 g 33.8 kg/m2 157.48 cm 168 mm[Hg] 107 mm[Hg] Tracy Alanis [facility] 17:04:08 Social History Question Answer Notes LastModified by Organizat ion Details LastModified Time Do You Have An Advance Directive? No [email or web address] Information n ot available 05/12/2024 Are You Blind Or Do You Have Difficulty Seeing? No [email or web address] Information n ot available 05/02/2024 What Is Your Level Of Caffeine Consumption? Occasional Information not available 05/12/2024 In The 14 Days Before Symptom Onset, Have You Had Close Contact With A Laboratory-confirm ed COVID-19 While That Case Was Ill? No [email or web address] Information n ot available 05/02/2024 In The 14 Days Before Symptom Onset, Have You Had Close Contact With A Person Who Is Under Investigation For COVID-19 While That Person Was Ill? No [email or web address] Information not available 05/02/2024 Have You Been To An Area Known To Be High Risk For COVID-19? No [email or web address] Information not available 05/02/2024 Are You Deaf Or Do You Have Serious Difficulty Hearing? No Information not available 05/02/2024 What Type Of Diet Are You Following? REGULAR Information n ot available 05/12/2024 What Is The Highest Grade Or Level Of School You Have Completed Or The Highest Degree You Have Received? [id number] [email or web address] Information not available 05/12/2024 Are There Any Guns Present In Your Home? No [email or web address] Information not available 05/12/2024 Do You Use Protection During Sex? No [email or web address] Information not available 05/12/2024 Do You Use Your Seat Belt Or Car Seat Routinely? Yes [email or web address] Information not available 05/02/2024 Are You Sexually Active? Yes [email or web address] Information not available 05/02/2024 Do You Have Smoke And Carbon Monoxide Detectors In Your Home? Yes Information not available 05/02/2024 How Much Tobacco Do You Smoke? No Information not available 05/12/2024 Do You Use Sunscreen Routinely? Yes [email or web address] Information not available 05/02/2024 Have You Used IV Drugs? No [email or web address] Information not available 05/12/2024 Do You Have Difficulty Walking Or Climbing Stairs? No [email or web address] Information not available 05/02/2024 Sex: Unknown Functional Status Question Answer Note LastModified by Organizat ion Details LastModified Time Do you use any illicit or recreational drugs? No [email or web address] Information not available 05/02/2024 What is your level of alcohol consumption? None [email or web address] Information not available 05/12/2024 Are you able to walk? YESWOREST [email or web address] Information not available 05/02/2024 Are you able to care for yourself? No Information n ot available 05/02/2024 What is your occupation? Unemployed Information not available 05/12/2024 Do you have difficulty dressing or bathing? No [email or web address] Information not available 05/02/2024 What is your exercise level? None [email or web address] Information not available 05/02/2024 Mental Status Question Answer Note LastModified by Organization D etails LastModified Time Do you feel stressed (tense, restless, nervous, or anxious, or unable to sleep at night)? [id number] [email or web address] Information not available 05/12/2024 Family History Relationship Description Onset Age of this Age Resolved Age Notes LastModified by Organization Details LastModified Time Father Malignant tumor of colon [email or web address] Not available 2023 11:18:19 Mother Hypertensive disorder [email or web address] Not available 2023 11:18:30 Notes:Father: Cancer, colon [...] cycle 10 Date of Last Pap Smear 05/25/2024 Sexual Problems? N LMP Approximate Obstetrics History GPAL:G 3 P 1 0 1 1 Type Value Full Term 1 Spontaneous 1 Living 1 Total 3 Past Encounters Encounter ID Performer Location Encounter Start Date Encounter Closed Date Diagnosis/Indication Diagnosis SNOMED-CT Code Diagnosis ICD10 Code Diagnosis Note [id number] MD Zenon Lott [address] [address] 10/16/2024 11:52:23 10/16/2024 12:50:32 Velamentous insertion of umbilical cord 18152232 O43.123 Z3A.32 [id number] MD Zenon Lott [address],[place] [address] 10/16/2024 11:52:47 10/16/2024 13:15:05 care status 505643884 Z34.83 [id number] Juan Miguel Rich MD [facility] [address],[place] [address] 11/03/2024 10:36:41 11/05/2024 23:40:37 [id number] Juan Miguel Rich MD [facility] [address],[place] [address] 11/08/2024 16:44:28 11/09/2024 05:29:12 care status 686558707 Z34.83 [id number] Ronna Sanders [facility] [address],[place] [address] 11/10/2024 16:39:57 11/10/2024 17:11:27 Gestation period, 36 weeks 80668103 Z3A.36 Health Concerns Section Related Observation LastModified by Organization Detai ls LastModified Time None Recorded Concern Status LastModified by Organization Details LastModified Time None Recorded Payers Encounter Date Sequence Insurance Name Policy Number Policy Jennings Covered Member ID Jennings Member ID Guarantor Name 11/10/2024 1 [facility] (MEDICAID HMO) [id number] Phill Muller [id number] Phill Muller OBGyn Episode Ob Episode Information Episode Created Date Number of Fetuses Patient Bloodtype Patient rh Status Prepregnancy Weight lbs Domestic Partner Domestic Partner Phone Father Name Power Lineman Technician Status 05/25/20 24 1 A Positive 169 OPEN Fetus Data First Name Last Name Admitted to NICU Weight (g) Sex Living Outcome Pediatric Complications Fetus ID Race Codes Race Delivery Type 10350 Problems Problem Notes Elevated PCR Problem Name Start Date End Date Resolution Snomed Code Not e Velamentous insertion of umb ilical cord 45980587 Pre-eclampsia 11/09/2024 034461172 Sergey Calculation Initial Sergey Date Initial Exam [...] Weight in lbs Pre/Post Dialysis Refused Weight 166.026636606673 BP Diastolic BP Location Tested BP Systolic [...] Type Weight in lbs Pre/Post Dialysis Refused 168.852077423427 BP Diastolic BP Location Tested BP Systolic [...] Type Weight in lbs Pre/Post Dialysis Refused 170.653161989697 BP Diastolic BP Location Tested BP Systolic [...] Weight in lbs Pre/Post Dialysis Refused Weight 179.571078441303 BP Diastolic BP Location Tested BP Systolic [...] Type Weight in lbs Pre/Post Dialysis Refused 184.139982442208 BP Diastolic BP Location Tested BP Systolic [...] Type Weight in lbs Pre/Post Dialysis Refused 185.720077804104 BP Diastolic BP Location Tested BP Systolic [...] Weight in lbs Pre/Post Dialysis Refused Weight 184.380621780374 BP Diastolic BP Location Tested BP Systolic [...] Weight in lbs Pre/Post Dialysis Refused Weight 185.928892695637 BP Diastolic BP Location Tested BP Systolic BP Type 108 L arm 160 sitting 107 R arm 157 sitting 102 R arm 162 sitting Fetus Heart Rate Present Fetus Movement Comments patient is sent to labor and delivery for extended monitoring. Flowsheet Date 11/10/2024 Terrazas Score Blood Edema Fundus Height Fundus Units Glucose Ketones Leukocytes Nitrite Labor Signs Protein Cervic Dilation Cervic Effacement Cervic Station neg none Type Weight in lbs Pre/Post Dialysis Refused 185.071229273536 BP Diastolic BP Location Tested BP Systolic BP Type 107 168 102 165 Fetus Heart Rate Present Fetus Movement A Yes Comments manual bp also elevated alisson es sxs, +FM, gbs collected to for monitoring Menstrual History Last Menstrual Date Menses Monthly [...]
--- OUTSIDE RECORDS SUMMARY | 2024-11-10 16:19 | XMS_ITS | Clinical Summary ---
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
--- OUTSIDE RECORDS SUMMARY | 2024-11-10 16:19 | XMS_ITS | Referral Summary ---
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
[2024-11-10 16:38] VITALS: BP 135/82; PULSE 79
[2024-11-10 16:39] VITALS: BMI 32.8
[2024-11-10 16:40] VITALS: BP 135/82; PULSE 79
[2024-11-10 16:44] LABS: Basophils Percent Auto 0.2 % (0.2-1.2); Eosinophils Percent Auto 0.1 % (0-4.4); Hematocrit 36.4 % (37.0-47.0); Immature Granulocyte Absolute 0.28 K/mm3 (0.00-0.031); Immature Granulocyte Percent A 1.7 % (0-0.5); Lymphocytes Absolute Auto 1.46 K/mm3 (0.9-3.2); Lymphocytes Percent Auto 8.9 % (18.3-44.2); Mean Corpuscular Hemoglobin 30.1 pg (26-34); Mean Corpuscular Volume 91.2 fl (80-100); Mean Platelet Volume 10.9 fl (7.4-10.4); Neutrophils Absolute Auto 13.6 K/mm3 (1.3-6.7); Neutrophils Percent Auto 83.1 % (45.5-73.1); Platelet Count Result 314 k/mm3 (150-375); Red Blood Count 3.99 M/mm3 (4.2-5.4); Red Cell Distribution Width 15.9 % (11.5-14.5); White Blood Count 16.4 K/mm3 (4.5-10.0)
[2024-11-10 16:46] VITALS: BP 141/86; PULSE 79
[2024-11-10 17:01] VITALS: BP 153/88; PULSE 66
[2024-11-10 17:01] LABS: Alanine Aminotransferase 14 U/L (6-35); Albumin Level 3.7 g/dL (3.5-5.1); Alkaline Phosphatase 131 U/L (38-126); Anion Gap 7 mmol/L (4-12); Aspartate Amino Transferase 22 U/L (14-36); Bilirubin,Total 0.3 mg/dL (0.2-1.3); Blood Urea Nitrogen 5 mg/dL (7-17); Carbon Dioxide 19 mmol/L (22-30); Chloride 104 mmol/L (98-107); Estimated CRCL calculation 138 ml/min; Estimated Glomerular Filt Rate > 60; Glucose 99 mg/dL (65-110); Potassium 3.7 mmol/L (3.4-5.0); Sodium 130 mmol/L (137-145); Uric Acid 3.4 mg/dL (2.5-7.5)
[2024-11-10 17:12] VITALS: BP 135/82; PULSE 81
== END 2024-11-10 17:10 | disposition home or self-care (01) ==
LOC: ANHOBOP 16:17 → ANHOBPP 16:18
PROVIDERS: Obstetrics & Gynecology; Visit Provider Obstetrics & Gynecology
DX: O13.9 Gestational [pregnancy-induced] hypertension without significant proteinuria, unspecified trimester (principal); Z3A.00 Weeks of gestation of pregnancy not specified
CPT/HCPCS: 36415; 59025; 80053; 84550; 85025; 99199

== ENCOUNTER 2024-11-15 05:54 | Inpatient (IN) | payer OTHER, SELFPAY ==
[2024-11-15] VITALS (264 sets, daily range): BP systolic 100–173; BP diastolic 49–108; PULSE 65–107; RESP 16; TEMP 36.2–36.7; O2SAT 95–100; BMI 32.5
--- OUTSIDE RECORDS SUMMARY | 2024-11-15 06:01 | XMS_ITS | Data Portability ---
Author Organization [facility] [place] Address [address] [place] [place] [address] Assessment Encounter Date Assessment Date Assessment LastModified by Organization Details LastModified Time 10/16/2024 10/16/2024 Patient is ___weeks . Discussed plan. [email or web address] Not available 10/16/2024 12:54:40 11/10/2024 11/10/2024 Patient is __36_weeks . Discussed plan. [email or web address] Not available 11/10/2024 17:11:08 Plan of Treatment Reminders Order Date Submit Date Provider Last Modified By Organization Details Last Modified Time Details Appointments None record ed. Lab None record ed. Referral None record ed. Procedures None record ed. Surgeries None record ed. Imaging US, obstet aayush, follow -up 025 10/17/19 25 [email or web address] [place] [address], [place], [address], 21:14:53 Medication Orders None record ed. Patient TargetsNo targets recorded. Patient InstructionsNo instructions recorded. Reason for Referral None Reported. Results Created Date Observation Date Name Description Value Unit Range Abnormal Flag Note LastModifiedBy Organization Detail LastModifiedTime 09/19/19 25 09/18/2024 HEMOG LOBIN (HGB) HGB 9.9 g/dL (based on docume nted legal sex) 11.6-1 5.4 low Not Available [facility] (Lab) [address], [place], [address], 09/19/2024 10:44:01 09/19/19 25 09/18/2024 HEMAT OCRIT (HCT) HCT 29.6 % (based on docume nted legal sex) 34.0-4 5.0 low Not Available [facility] (Lab) [address], [place], [address], 09/19/2024 10:44:02 09/19/19 25 09/18/2024 GTT - GESTA KARINA L SCREElizabeth N, ACOG OB glucose, 1 hour screen 113 mg/dL 70-135 Not Available [facility] (Lab) [address] [place], [address], 09/19/2024 10:44:02 09/19/19 25 09/18/2024 HIV 1/2 ANTIG EN/AN TIBOD Y, REFLE X CONFI RMATI ON HIV antigen/anti body Nonrea ctive nonrea ctive HIV-1 antig en and HIV-1 /HIV- 2 antib odies were not detec uday. No labor atory evide nce of HIV infec tion. Not Available [facility] (Lab) [address], [place], [address], 09/19/2024 10:44:02 09/19/19 25 09/18/2024 RPR SCREE N, REFLE X TITER /CONF IRMAT ION RPR qualitative Nonrea ctive nonrea ctive Not Available [facility] (Lab) [address] [place], [address], 09/19/2024 10:44:03 11/11/19 25 11/10/2024 CULTU RE: GROUP B STREP SCREE N, REFLE X SUSCE PTIBI LITY result report SEE RESULT S BELOW Test: Cultu re: Group B Strep , Refle x Susce ptibi lity ([facility]/ [facility] ) Speci men Sourc e: Vagin a/Rec jagjit Speci men Type: Vagin al/Re ctal Speci men Date: 2024 1618 Resul t Date: 2024 1353 Resul t Statu s: Final resul t Abnor mal: No Resul ting Lab: [facility] [address] [facility] [address] Tel: CULTU RE ----- ----- ----- --- No Group B strep isola uday at 2 days (chelsy ctive broth enhan cemen t) Not Available [facility] (Lab) [address], [place], [address], 11/13/2024 14:58:14 09/19/19 25 09/18/2024 US, obste tric, follo w-up No observ ation record ed. [facility] [address], [place], [address], 09/18/2024 17:12:51 09/19/19 25 09/18/2024 US, obste tric, follo w-up No observ ation record ed. [email or web address] [facility] [address], [place], [address], 09/25/2024 16:00:38 10/17/19 25 10/16/2024 US, obste tric, follo w-up No observ ation record ed. [email or web address] [place] [address], [place], [address], 10/16/2024 18:14:32 10/17/19 25 10/16/2024 US, obste tric, follo w-up No observ ation record ed. [email or web address] [facility] [address], [place], [address], 10/17/2024 15:03:57 11/11/19 25 11/10/2024 non-s tress test No observ ation record ed. [place] [id number], [place], [address], 11/14/2024 12:13:53 Result Notes None recorded. Problems Name Problem SNOMED Code Status Onset Date Resolution Date Notes Provider Name and Address Organization Details Recorded Time 36386195 Active 2023 Viji Atkinson null, [facility] 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 5 11:16:58 Pre-eclampsi a 380643263 Active 2024 Nicole Seals null, [facility] 5 12:47:32 Problem Notes None recorded. Procedures Surgical History Date Name Laterality Status Provider Name and Address Organization Details Recorded Time 05/25/2024 Date of Last Pap Smear completed Tracy Alanis [facility] 11/10/2024 16:55:57 Imaging Results None recorded. Procedure Notes None recorded. Medical Equipment None Reported. Allergies No known drug allergies Medications Name Sig Start Date Stop Date Status Note LastModified by Organization Details LastModified Time Flagyl 500 mg tablet take 4 tablets by oral route all at once 05/02 completed Prescrib ed Elsewher e: No Locat ion: [facility] odify By: patricia reyes DateTime : 03/01/20 18 03:22:43 PM Not Available Not Available Not Available pantopraz ole 40 mg tablet,de layed release TAKE 1 TABLET BY MOUTH EVERY DAY 11/10 completed Not Available Not Available Not Available Vitamin D2 1,250 mcg (50,000 unit) capsule take 1 capsule (10077GH ITS) by oral route every week 12/22 completed Prescrib ed Elsewher e: No Locat ion: [facility] odify By: maximiliano story DateTime : 09/09/19 13 10:20:20 AM Not Available Not Available Not Available Augmentin 500 mg-125 mg tablet take 1 tablet by oral route every 12 hours 12/22 completed Prescrib ed Elsewher e: No [facility] By: maximiliano story DateTime : [...] ed Elsewher e: Yes Loca tion: [facility] odify By: maximiliano story DateTime : 12/23/19 13 09:30:00 AM Not Available Not Available Not Available Triveen-D uo DHA 29 mg-1 mg-400 mg oral pack take 2 by Oral route every day for 30 days 06/02 completed Prescrib ed Elsewher e: No Locat ion: [facility]ify By: dilip story DateTime : 05/04/20 12 01:00:00 PM Not Available Not Available Not Available Vitals Date Recorded Body height Body mass index (BMI) Body weight Systolic blood pressure Diastolic blood pressure Provider Name and Address Organization Details Last Updated DateTime 10/16/2024 157.48 cm 33.7 kg/m2 06711 g 148 mm[Hg] 86 mm[Hg] [facility] 12:56:36 Date Recorded Body height Body mass index (BMI) Body weight Systolic blood pressure Diastolic blood pressure Systolic blood pressure Diastolic blood pressure Systolic blood pressure Diastolic blood pressure Provider Name and Address Organization Details Last Updated DateTime 5 157.48 cm 33.8 kg/m2 73172.5 9 g 160 mm[Hg] 108 mm[Hg] 157 mm[Hg] 107 mm[Hg] 162 mm[Hg] 102 mm[Hg] Viji [facility] 5 17:48:43 Date Recorded Systolic blood pressure Diastolic blood pressure Provider Name and Address Organization Details Last Updated DateTime 11/10/2024 165 mm[Hg] 102 mm[Hg] Ronna Sanders, JOHANNA [address], [place], [address], [facility] 11/10/2024 17:10:38 Date Recorded Body weight Body mass index (BMI) Body height Systolic blood pressure Diastolic blood pressure Provider Name and Address Organization Details Last Updated DateTime 11/10/2024 70176.58 845 g 33.8 kg/m2 157.48 cm 168 mm[Hg] 107 mm[Hg] Tracy Alanis [facility] 17:04:08 Social History Question Answer Notes LastModified by Organizat ion Details LastModified Time Tobacco Smoking Status Never Smoker Tracy [email or web address], [facility] 11/13/2024 12:49:10 Do You Have An Advance Directive? No [email or web address] Information n ot available 05/12/2024 If You Are , What Was Your Level Of Alcohol Consumption Prior To ? Occasional [email or web address] Information not available 11/13/2024 Are You Blind Or Do You Have Difficulty Seeing? No [email or web address] Information n ot available 05/02/2024 What Is Your Level Of Caffeine Consumption? Occasional Information not available 05/12/2024 In The 14 Days Before Symptom Onset, Have You Had Close Contact With A Laboratory-confirm ed COVID-19 While That Case Was Ill? No [email or web address] Information n ot available 05/02/2024 In The 14 Days Before Symptom Onset, Have You Had Close Contact With A Person Who Is Under Investigation For COVID-19 While That Person Was Ill? No [email or web address] Information not available 05/02/2024 Have You Been To An Area Known To Be High Risk For COVID-19? No [email or web address] Information not available 05/02/2024 Are You Deaf Or Do You Have Serious Difficulty Hearing? No [email or web address] Information not available 05/02/2024 What Type Of Diet Are You Following? REGULAR [email or web address] Information n ot available 05/12/2024 What Is The Highest Grade Or Level Of School You Have Completed Or The Highest Degree You Have Received? [id number] [email or web address] Information not available 05/12/2024 Are There Any Guns Present In Your Home? No Information not available 05/12/2024 Do You Use Protection During Sex? No Information not available 05/12/2024 Do You Use Your Seat Belt Or Car Seat Routinely? Yes [email or web address] Information not available 05/02/2024 Are You Sexually Active? Yes [email or web address] Information not available 05/02/2024 Do You Have Smoke And Carbon Monoxide Detectors In Your Home? Yes [email or web address] Information not available 05/02/2024 How Much Tobacco Do You Smoke? No Information not available 05/12/2024 Do You Use Sunscreen Routinely? Yes [email or web address] Information not available 05/02/2024 Has Tobacco Cessation Counseling Been Provided? No [email or web address] Information not available 11/13/2024 Have You Used IV Drugs? No [email or web address] Information not available 05/12/2024 Do You Have Difficulty Walking Or Climbing Stairs? No [email or web address] Information not available 05/02/2024 Sex: Unknown Functional Status Question Answer Note LastModified by Organizat ion Details LastModified Time Do you use any illicit or recreational drugs? No [email or web address] Information not available 05/02/2024 Do you or have you ever used any other forms of tobacco or nicotine? No [email or web address] Information not available 11/13/2024 What is your level of alcohol consumption? None [email or web address] Information not available 05/12/2024 Are you able to walk? YESWOREST [email or web address] Information not available 05/02/2024 Are you able to care for yourself? No [email or web address] Information n ot available 05/02/2024 What is your occupation? Unemployed [email or web address] Information not available 05/12/2024 Do you have difficulty dressing or bathing? No [email or web address] Information not available 05/02/2024 What is your exercise level? None [email or web address] Information not available 05/02/2024 Mental Status Question Answer Note LastModified by Organization D etails LastModified Time Do you feel stressed (tense, restless, nervous, or anxious, or unable to sleep at night)? [id number] [email or web address] Information not available 05/12/2024 Family History Relationship Description Onset Age of this Age Resolved Age Notes LastModified by Organization Details LastModified Time Father Malignant tumor of colon [email or web address] Not available 2023 11:18:19 Mother Hypertensive disorder [email or web address] Not available 2023 11:18:30 Paternal Grandfather Malignant tumor of colon [email or web address] Not available 11/13 12:49:56 Paternal Grandmother Malignant tumor of breast [email or web address] Not available 11/13 12:50:15 Notes:Father: Cancer, colon Maternal grandfather: Hypertension Paternal grandfather: Cancer, colon Paternal grandmother: Cancer, breast Medical History Condition Response Allergies (Food, seasonal, environmental ) N Other N Drug/Latex Allergies/Reactions N Blood Transfusion N Breast Cancer N Dermatologic Disorders N Lung Disease N Defects or Inherited Disease N Breast Problem N Gestational Diabetes N Hematologic disorders N Anesthesia Complications N History of STI N Deep Vein Thrombosis N Polycystic ovary syndrome N Anxiety Disorder N Autoimmune disease N Arthritis N Polyps N Infertility N Acid Reflux (GERD) Y History of abnormal pap N Cancer N Varicosities N Stroke N Neurologic/Epilepsy N Endometriosis N High Cholesterol N Fibromyalgia N Headaches N Kidney Disease N Heart Problems N Thyroid Problems N Kidney or Bladder Problems N GI Problems N Eating Disorder N Anemia Y Art (IVF or FET) N Psychiatric Illness N Ovarian Cancer N Diabetes N Pulmonary (TB, Asthma) N Hepatitis/Liver Disease N No Past Medical History Y Eczema N Urinary Tract Infection N Abuse/Domestic Violence N Asthma N Trauma/Violence N Depression/ depression N Heart Disease N Pre-Eclampsia Y Hypertension N Osteoporosis N Thrombophilias N Gynecological History Statement/Question Response Abnormal Pap N Flow Moderate Date of Last Mammogram Date of LMP 03/01/2024 On BCP's at Conception? N Was last menstrual period normal Y STIs/STDs Y Duration of Flow (days) 5 Current Control Method Are cycles usually normal Y Date of Last Colonoscopy Frequency of Cycle (Q days) 28 Sexually Active? Y Menses Monthly Y Date of DEXA bone scan Age of first menstrual cycle 10 Date of Last Pap Smear 05/25/2024 Sexual Problems? N LMP Approximate Obstetrics History GPAL:G 3 P 1 0 1 1 Type Value Full Term 1 Spontaneous 1 Living 1 Total 3 Past Encounters Encounter ID Performer Location Encounter Start Date Encounter Closed Date Diagnosis/Indication Diagnosis SNOMED-CT Code Diagnosis ICD10 Code Diagnosis Note [id number] Juan Miguel Rich MD [facility] [address] [address] 05/02/2024 11:02:45 05/02/2024 11:40:21 [id number] SHARI TAVERAS MD [facility] [address],[place] [address] 05/02/2024 11:14:07 05/04/2024 11:30:31 [id number] SHARI TAVERAS MD [facility] [address] [address] 05/12/2024 09:34:30 05/12/2024 10:15:51 screening 643652960 Z36.0 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 Exam today within normal limits.2. Ultrasound 05/02 confirms GA and viability. EDC . GC/Isabella a testing done: will f/u as indicated. 4. ACOG guidelines and plan of care for reviewed with patient. All questions answered.5 . Return to office at 12 weeks for new OB visit6. Will need new OB labs drawn today.7. Genetic screening: desires, will draw today [id number] MD Zenon Lott [address] [address] 05/25/2024 14:03:20 05/25/2024 15:08:48 screening 541411182 Z36.82 Z3A.12 [id number] MD Zenon Lott [address] [address] 05/25/2024 14:03:41 05/25/2024 15:56:37 Routine care 845984386 Z34.90 [id number] MD Zenon Lott [address] [address] 06/26/2024 09:33:57 06/26/2024 10:30:39 Routine care 362027448 Z34.90 [id number] MD Zenon Lott [address] [address] 07/24/2024 09:25:07 07/24/2024 10:37:56 screening for malformation 550905561 Z36.3 Z3A.20 [id number] MD Zenon Lott [address] [address] 07/24/2024 09:25:19 07/24/2024 11:40:59 Gastroesophageal reflux disease 159190201 K21.00 Routine an tenatal care 158302534 Z34.90 [id number] MD Zenon Lott [address] [address] 08/21/2024 09:25:46 08/21/2024 10:12:54 screening 313966834 Z36.2 O43.122 Z3A.24 [id number] MD Zenon Lott [address] [address] 08/21/2024 09:25:58 08/21/2024 11:06:35 Routine care 865315270 Z34.90 [id number] MD Zenon Lott [address] [address] 09/18/2024 09:26:25 09/18/2024 10:11:01 Velamentous insertion of umbilical cord 30038124 O43.123 Z3A.28 [id number] MD Zenon Lott [address] [address] 09/18/2024 09:26:47 09/18/2024 10:59:01 care status 398443038 Z34.83 [id number] MD Zenon Lott [address] [address] 10/05/2024 11:04:56 10/05/2024 11:46:16 care status 542906602 Z34.83 [id number] MD Zenon Lott [address],[place] [address] 10/16/2024 11:52:23 10/16/2024 12:50:32 Velamentous insertion of umbilical cord 99054894 O43.123 Z3A.32 [id number] Juan Miguel Rich MD [facility] [address] [address] 10/16/2024 11:52:47 10/16/2024 13:15:05 care status 440226841 Z34.83 [id number] Juan Miguel Rich MD [facility] [address] [address] 11/03/2024 10:36:41 11/05/2024 23:40:37 [id number] Juan Miguel Rich MD [facility] [address] [address] 11/08/2024 16:44:28 11/09/2024 05:29:12 care status 790082718 Z34.83 [id number] Ronna Sanders [facility] [address] [address] 11/10/2024 16:39:57 11/13/2024 04:50:38 Gestation period, 36 weeks 12856162 Z3A.36 Health Concerns Section Related Observation LastModified by Organization Detai ls LastModified Time None Recorded Concern Status LastModified by Organization Details LastModified Time None Recorded Advance Directives Directive N: Payers Insurance Date Sequence Insurance Name Policy Number Policy Jennings Covered Member ID Jennings Member ID Guarantor Name 11/13/2024 1 [facility] (MEDICAID HMO) [id number] Phill Muller [id number] Phill Muller OBGyn Episode Ob Episode Information Episode Created Date Number of Fetuses Patient Bloodtype Patient rh Status Prepregnancy Weight lbs Domestic Partner Domestic Partner Phone Father Name Comb Winder Status 05/25/20 24 1 CLOSED Fetus Data First Name Last Name Admitted to NICU Weight (g) Sex Living Outcome Pediatric Complications Fetus ID Race Codes Race Delivery Type 2806.37 3704 M Prematur e 34206 Vaginal Delivery Sergey Calculation Initial Sergey Date [...] Tubal Sterilization Discharge Date Comments 3 38 preeclam p vickey Discharge Information Feeding Method Contraceptive Method Maternal HG B and HCT Levels Ob Episode Information Episode Created Date Number of Fetuses Patient Bloodtype Patient rh Status Prepregnancy Weight lbs Domestic Partner Domestic Partner Phone Father Name Comb Winder Status 05/02/20 24 1 CLOSED Fetus Data First Name Last Name Admitted to NICU Weight (g) Sex Living Outcome Pediatric Complications Fetus ID Race Codes Race Delivery Type , Spontane ous 25247 Sergey Calculation Initial Sergey Date Initial Exam [...] Domestic Partner Domestic Partner Phone Father Name Comb Winder Status 05/25/20 24 1 A Positive 169 OPEN Fetus Data First Name Last Name Admitted to NICU Weight (g) Sex Living Outcome Pediatric Complications Fetus ID Race Codes Race Delivery Type [id number] Problems Problem Notes Elevated PCR Problem Name Start Date End Date Resolution Snomed Code Not e Velamentous insertion of umb ilical cord 21061596 Pre-eclampsia 11/09/2024 [id number] Sergey Calculation Initial Sergey Date Initial Exam [...] Weight in lbs Pre/Post Dialysis Refused Weight 166.879813236877 BP Diastolic BP Location Tested BP Systolic [...] Type Weight in lbs Pre/Post Dialysis Refused 168.235790375866 BP Diastolic BP Location Tested BP Systolic [...] Type Weight in lbs Pre/Post Dialysis Refused 170.122380830433 BP Diastolic BP Location Tested BP Systolic [...] Weight in lbs Pre/Post Dialysis Refused Weight 179.879634538075 BP Diastolic BP Location Tested BP Systolic [...] Type Weight in lbs Pre/Post Dialysis Refused 184.419960105426 BP Diastolic BP Location Tested BP Systolic [...] Type Weight in lbs Pre/Post Dialysis Refused 185.146259171001 BP Diastolic BP Location Tested BP Systolic [...] Weight in lbs Pre/Post Dialysis Refused Weight 184.522039886012 BP Diastolic BP Location Tested BP Systolic [...] Weight in lbs Pre/Post Dialysis Refused Weight 185.449856256366 BP Diastolic BP Location Tested BP Systolic [...] Type Weight in lbs Pre/Post Dialysis Refused 185.688585016941 BP Diastolic BP Location Tested BP Systolic BP Type 107 168 102 165 Fetus Heart Rate Present Fetus Movement A Yes Comments manual bp also elevated alisson es sxs, +FM, gbs collected to ld for monitoring Menstrual History Last Menstrual Date [...] Domestic Partner Domestic Partner Phone Father Name Comb Winder Status 05/02/20 24 1 DELETED Sergey Calculation [...]
--- OUTSIDE RECORDS SUMMARY | 2024-11-15 06:01 | XMS_ITS | Referral Summary ---
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
--- OUTSIDE RECORDS SUMMARY | 2024-11-15 06:01 | XMS_ITS | Clinical Summary ---
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
--- NOTE | 2024-11-15 06:33 | P.PNAN_ITS ---
Anes - Eval Pre Procedure Procedure: labor epidural Date/Time: 11/15/24 06:33 Surgeon: [email or web address] Preop Diagnosis: pain during labor Pre Op Diagnosis: IOL Patient Data Age: 34 Gender: F Height: Weight: Last Vital Signs Pulse 71 11/15/24 06:20 BP 153/97 H 11/15/24 06:20 Allergies Allergy/AdvReac Type Severity Reaction Status Date / Time No Known Allergies Allergy Mild Verified 11/06/24 15:24 Home Medications ?Medication ?Instructions ?Recorded ?Confirmed ?Type ferrous sulfate 137 mg (45 mg 137 mg PO DAILY 11/06/24 11/06/24 History iron) tablet,extended release (Slow Fe) vits no.130-ferrous fum 1 tablet PO DAILY 11/06/24 11/06/24 History 27 mg iron-folic acid 800 mcg tablet ( Vitamin) Patient hx anesthesia problems: none Family hx anesthesia problems: none Results Review: All pre-operative results and documents have been reviewed as part of the pre- operative evaluation. PMFSH Past Medical History Medical History (Updated 11/15/24 @ 06:34 by Rema Dominguez CRNA) IUP (intrauterine ), incidental Family History Family History (Updated 11/06/24 @ 15:29 by Marcia Raymond RN) Father Cancer Mother Cancer Hypertension Social History Social History Substance use: never Do You Feel Safe in your Home?: Yes Lack of Transportation: No Lack of Food: Never True Current Housing: I Have Housing Concerned About Future Housing: No Difficulty Paying Gas/Electric Bills: No Difficulty Paying for Meds: No Currently Unemployed: No Education: High School Diploma/GED Difficulty w/ Childcare or Family Care: No Spiritual care concerns: No Exam Day of Procedure 11/15/24 06:33
[2024-11-15 06:51] LABS: Basophils Absolute Auto 0.1 K/mm3 (0.0-0.1); Basophils Percent Auto 0.3 % (0.2-1.2); Eosinophils Absolute Auto 0.2 K/mm3 (0-0.3); Hematocrit 36.7 % (37.0-47.0); Hemoglobin 12.2 g/dL (12.0-15.0); Immature Granulocyte Absolute 0.11 K/mm3 (0.00-0.031); Immature Granulocyte Percent A 0.8 % (0-0.5); Lymphocytes Absolute Auto 1.97 K/mm3 (0.9-3.2); Lymphocytes Percent Auto 13.8 % (18.3-44.2); Mean Corpuscular HGB Conc 33.2 g/dl (32-36); Mean Corpuscular Hemoglobin 29.6 pg (26-34); Mean Corpuscular Volume 89.1 fl (80-100); Mean Platelet Volume 10.6 fl (7.4-10.4); Monocytes Absolute Auto 0.7 K/mm3 (0.1-0.6); Neutrophils Absolute Auto 11.3 K/mm3 (1.3-6.7); Neutrophils Percent Auto 79.1 % (45.5-73.1); Platelet Count Result 305 k/mm3 (150-375); Red Blood Count 4.12 M/mm3 (4.2-5.4); Red Cell Distribution Width 15.3 % (11.5-14.5); White Blood Count 14.3 K/mm3 (4.5-10.0)
--- NOTE | 2024-11-15 06:51 | LDADM ---
This patient, Phill Muller, was admitted to Labor/Delivery/Recovery 105 on 11/15/24 at 05:54. Plans for labor, pain management and were discussed with patient. Patient/family oriented to hospital policies and general routines including ID bracelet, bed and alarms, visiting hours, pain management, procedures, bathroom and other care routines, personal items, smoking policy, room service/diet and guest tray routines, security routines, and visiting hours. Patient/Family are encouraged to report perceived risks to care and to ask questions if they do not understand what they are told or what they should do. See OBIX for further documentation.
[2024-11-15 07:28] LABS: Syphilis IgG/IgM Antibody Non-Reactive (Nonreactive)
[2024-11-15] MEDS: LABETALOL HCL INJ 100 MG/20 ML VIAL 20 MG IV PUSH (07:39)
[2024-11-15] MEDS: LACTATED RINGERS 1,000 ML 125 ML IV CONT (07:40)
[2024-11-15 07:42] LABS: HIV 1/2 Ab P24 Ag Result Negative (Negative)
[2024-11-15] MEDS: MAGNESIUM SULF 4 GM/WATER100ML 4 GM/100 ML BAG IVPB (07:57)
[2024-11-15] MEDS: OXYTOCIN 30 UNITS/NS 500 ML 30 UNITS/500 ML BAG IV CONT (08:05)
[2024-11-15] MEDS: MAGNESIUM SULF 20GM/WATER500ML 500 ML 50 MG IV CONT ×2 (08:34→18:09)
[2024-11-15 08:57] LABS: Alanine Aminotransferase 13 U/L (6-35); Albumin Level 3.5 g/dL (3.5-5.1); Alkaline Phosphatase 129 U/L (38-126); Anion Gap 8 mmol/L (4-12); Aspartate Amino Transferase 19 U/L (14-36); Bilirubin,Total 0.3 mg/dL (0.2-1.3); Blood Urea Nitrogen 5 mg/dL (7-17); Calcium 8.9 mg/dL (8.4-10.2); Carbon Dioxide 19 mmol/L (22-30); Chloride 107 mmol/L (98-107); Estimated CRCL calculation 133 ml/min; Estimated Glomerular Filt Rate > 60; Glucose 94 mg/dL (65-110); Sodium 134 mmol/L (137-145); Total Protein 6.9 g/dL (6.3-8.2)
--- NOTE | 2024-11-15 09:47 | WPDHPUPDATE1 ---
History and Physical Update Update Date/Time: 11/15/24 09:47 34-year-old multiparous female who presents for elective induction of labor. 3 cm, 90%, -2. Artificial rupture of membranes was performed.-meconium-stained fluid. Reassuring status. Active management of labor History and Physical has been reviewed, including an updated exam of the patient. There are NO changes in the patient's condition. Risks, benefits, and alternatives have been discussed and questions answered. Patient agrees to proceed with procedure.
[2024-11-15] MEDS: LACTATED RINGERS 1,000 ML 75 ML IV CONT (12:13)
[2024-11-15] MEDS: ONDANSETRON INJ 4 MG/2 ML VIAL IV PUSH (18:22)
--- NOTE | 2024-11-15 20:31 | PM.OBPRVD ---
OB - Vaginal Delivery Note Procedure Delivery date: 11/15/24 Induction method: AROM and Per Pitocin Protocol Delivery monitor: External FHT and Internal Uterine Route of delivery: Episiotomy description: None Laceration Description: Perineal - 2nd Degree Delivery repair: vicryl Specimen: No Quantitative Blood Loss (ml): 300 Anesthesia type: Epidural Disposition: Floor Complications: No immediate complications
[2024-11-15] MEDS: ACETAMINOPHEN 325 MG TABLET 650 MG PO (23:40)
--- NOTE | 2024-11-15 23:40 | OBPPTRN ---
Patient transferred to post room #283 via wheelchair. Support person present. Oriented to unit, room, information board, rooming in, admission packet and security measures. Patient verbalizes understanding.
[2024-11-15] MEDS: IBUPROFEN 600 MG TABLET PO (23:41)
[2024-11-16] VITALS (12 sets, daily range): BP systolic 124–168; BP diastolic 68–106; PULSE 68–92; RESP 13–20; TEMP 36.2–36.9; O2SAT 98–100
--- NOTE | 2024-11-16 01:50 | PC.NURSE ---
Notified Ronna Sanders CNM (racing driver) of patients Magnesium rate since transfer to floor. Advised Magnesium is off, DTR 2+, Vital signs including BP 154/96, HR 80, Pulse ox 99. Orders received for Stat Magnesium Level, Discontinue Magnesium at this time. Call for severe range high blood pressure or critical Magnesium level. Per Ronna Sanders she will notify Dr. Rich.
[2024-11-16 02:16] LABS: Hematocrit 32.9 % (37.0-47.0); Hemoglobin 11.3 g/dL (12.0-15.0)
--- NOTE | 2024-11-16 02:47 | PC.NURSE ---
Lab called regarding Mag level. Tech states they are running test now.
[2024-11-16 02:55] LABS: Magnesium 7.8 mg/dL (1.6-2.3)
[2024-11-16] MEDS: LABETALOL HCL 100 MG TABLET 200 MG PO ×2 (03:53→19:47)
--- NOTE | 2024-11-16 07:29 | WPDANLDPN2 ---
Anes-Prog Note L&D Date/Time: 11/16/24 07:29 Comfortable throughout: labor and delivery Neuraxial method: epidural Epidural/Spinal procedure site: tender (site with quarter size bruise at insertion site) Neuro status: Neuro function grossly intact. Cardiovascular status: normal Respiratory status: normal Airway patency: baseline Mental status: baseline Post-Op hydration status: normal Vital Signs: Last Vital Signs Temp 36.3 C L 11/16/24 04:00 Pulse 71 11/16/24 04:00 Resp 13 11/16/24 04:00 BP 135/68 11/16/24 05:00 Pulse Ox 98 11/16/24 04:00 O2 Del Method Room Air 11/16/24 03:18 Pain score (VAS): 1/10 I/O: Intake & Output 11/15/24 11/15/24 11/16/24 15:59 23:59 07:59 Intake Total 568.8 500 1200 Output Total 900 1100 Balance -331.2 500 100 Post-procedural complaints: none Patient feedback: Patient satisfied with anesthetic care.
--- NOTE | 2024-11-16 08:34 | P.PNOB_ITS ---
OB - PN: Subj Subjective Date/time seen: 11/16/24 08:34 Patient comments: no complaints, pain well controlled, incisional pain, tolerating diet and flatus present OB - PN: Obj Data Labs 11/16/24 02:06 11/15/24 06:45 Labs: Laboratory Results - last 24 hr 11/15/24 11/16/24 06:45 02:06 Hgb 11.3 L Hct 32.9 L Sodium 134 L Potassium 4.0 Chloride 107 Carbon Dioxide 19 L Anion Gap 8 BUN 5 L Creatinine 0.51 L Estim Creat Clear Calc 133 Estimated GFR > 60 Glucose 94 Calcium 8.9 Magnesium 7.8 H Total Bilirubin 0.3 AST 19 ALT 13 Alkaline Phosphatase 129 H Total Protein 6.9 Albumin 3.5 OB - PN A/P Plan day: 1 Plan: routine care Comments: No problems, routine care Time Spent With Patient Time: Total time spent is greater than 50% in coordination of care (as documented) at patient's floor/unit and/or counseling patient: Exam 2 Const: General: comfortable, no acute distress and alert Resp: Effort & Inspection: normal respiratory effort Auscultation: no crackles, no rales and no rhonchi Cardio: Rate: regular rate Heart sounds: no click, no murmurs and no rubs GI: Inspection: non-distended GI Palp: No Tenderness to palpation present (GI) Auscultation: normal bowel sounds Other: Incision - CDI Extrem: General: normal to inspection, no pedal edema and no calf tenderness
--- NOTE | 2024-11-16 08:35 | P.DS_ITS ---
DS: Admitting Diagnosis Discharge Date 11/17/2019 Admitting Diagnosis Term DS: Discharge Diagnosis Discharge Diagnosis (1) Term delivered: Code(s): O80 - Encounter for full-term uncomplicated delivery Status: Acute OB - DS: Summary OB Procedures : None OB Procedures Intrapartum: Spontaneous Vag Delivery OB Procedures: : None Peripartum Data Laceration Description: Perineal - 2nd Degree Episiotomy description: None Time Spent with Patient Time attestation: Total time spent providing and/or coordinating discharge services: DS: Data Data Completed and Pending Labs on day of discharge: Labs from last 24 hours 11/16/24 11/15/24 02:06 06:45 Hgb 11.3 L Hct 32.9 L Sodium 134 L Potassium 4.0 Chloride 107 Carbon Dioxide 19 L Anion Gap 8 BUN 5 L Creatinine 0.51 L Estim Creat Clear Calc 133 Estimated GFR > 60 Glucose 94 Calcium 8.9 Magnesium 7.8 H Total Bilirubin 0.3 AST 19 ALT 13 Alkaline Phosphatase 129 H Total Protein 6.9 Albumin 3.5 Discharge Plan Discharge Discharging Clinician: Juan Miguel Rich Patient Disposition: Home Activity: pelvic rest Diet: regular Patient Instructions: Antibiotic Form Patient Language: Taiwanese Stand Alone Forms: General Discharge Information Follow-up/Referrals: Juan Miguel Rich MD [Physician] - Discharge Medications: Continued Vitamin 27 mg iron- 800 mcg tablet 1 tablet PO DAILY Slow Fe 137 mg (45 mg iron) tablet extended release 137 mg PO DAILY Date of admission: 11/15/24 05:54 Primary Care Provider: PHYSICIAN,EXERCISE PHYSIOLOGIST CERTIFIED Admitting Provider: Juan Miguel Rich Attending physician on admission: Juan Miguel Rich Condition: Stable
[2024-11-16] MEDS: IBUPROFEN 600 MG TABLET PO ×2 (11:58→19:47)
[2024-11-17 04:23] VITALS: BP 139/76
[2024-11-17 08:15] VITALS: BP 140/89; PULSE 72; RESP 16; TEMP 36.9; O2SAT 97
[2024-11-17 08:21] VITALS: PULSE 86
[2024-11-17] MEDS: LABETALOL HCL 100 MG TABLET 200 MG PO (08:21)
[2024-11-17] MEDS: IBUPROFEN 600 MG TABLET PO (08:21)
--- NOTE | 2024-11-17 10:42 | P.PNOB_ITS ---
OB - PN: Subj Subjective Date/time seen: 11/17/24 10:42 Interval history: PPD#1 Doing well Asymptomatic BP overall well controlled Ready for discharge home today OB - PN: Obj Data Labs 11/16/24 02:06 11/15/24 06:45 OB - PN A/P Plan day: 1 Plan: routine care and discharge home Time Spent With Patient Time: Total time spent is greater than 50% in coordination of care (as documented) at patient's floor/unit and/or counseling patient: Review of Systems 2 Review of Systems: All systems reviewed & are unremarkable except as noted in HPI and below Exam 2 Const: General: comfortable and no acute distress O rientation/consciousness: patient oriented x3 Resp: Effort & Inspection: normal respiratory effort
--- NOTE | 2024-11-17 10:44 | PM.OBDSVD ---
DS: Admitting Diagnosis Discharge Date 11/17/24 Admitting Diagnosis preeclampsia, MIL DS: Discharge Diagnosis Discharge Diagnosis (1) (spontaneous vaginal delivery): Code(s): O80 - Encounter for full-term uncomplicated delivery Status: Acute (2) Preeclampsia: Code(s): O14.90 - Unspecified pre-eclampsia, unspecified trimester Status: Acute OB - DS: Summary OB Procedures : None OB Procedures Intrapartum: Spontaneous Vag Delivery OB Procedures: : None Peripartum Data Laceration Description: Perineal - 2nd Degree Episiotomy description: None Time Spent with Patient Time attestation: Total time spent providing and/or coordinating discharge services: Discharge Plan Discharge Discharging Clinician: Juan Miguel Rich Patient Disposition: Home Activity: pelvic rest Diet: regular Patient Instructions: Antibiotic Form Patient Language: Romanian Stand Alone Forms: General Discharge Information Follow-up/Referrals: Juan Miguel Rich MD [Physician] - Discharge Medications: Continued Vitamin 27 mg iron- 800 mcg tablet 1 tablet PO DAILY Slow Fe 137 mg (45 mg iron) tablet extended release 137 mg PO DAILY Date of admission: 11/15/24 05:54 Primary Care Provider: PHYSICIAN,MEDICAL SOCIAL CONSULTANT Admitting Provider: Juan Miguel Rich Attending physician on admission: Juan Miguel Rich Condition: Stable
[2024-11-17] MEDS: TETANUS,DIPHTHERIA,AC PERTUSSIS ADULT (0.5 ML) BOOSTRIX IM (12:04)
[2024-11-17 12:30] VITALS: BP 150/93; PULSE 78; RESP 16; TEMP 36.6; O2SAT 100
[2024-11-18 08:09] VITALS: BP 143/77; PULSE 79; RESP 18; TEMP 36.9; O2SAT 99
== END 2024-11-17 13:50 | disposition home or self-care (01) | DRG 560 ==
LOC: ANHLDR 06:00 → ANHOB2 11-16 03:03
PROVIDERS: Advanced Practice Midwife; Admitting Provider Obstetrics & Gynecology; Visit Provider Obstetrics & Gynecology
DX: O14.14 Severe pre-eclampsia complicating childbirth (principal); Z37.0 Single live birth; Z3A.37 37 weeks gestation of pregnancy; O70.1 Second degree perineal laceration during delivery; O77.0 Labor and delivery complicated by meconium in amniotic fluid; O69.82X0 Labor and delivery complicated by other cord entanglement, without compression, not applicable or unspecified
CPT/HCPCS: 36415; 80053; 83735; 85014; 85018; 85025; 86593; 86703; 86850; 86900; 86901; 90715; A9270; G0432; J2405; J2590; J2795; J3475; J7120

== ENCOUNTER 2024-11-24 17:57 | Observation (INO) | payer OTHER, SELFPAY ==
[2024-11-24] VITALS (30 sets, daily range): BP systolic 135–174; BP diastolic 72–102; PULSE 57–71
[2024-11-24] MEDS: LABETALOL HCL 100 MG TABLET 200 MG PO ×2 (15:33→16:53)
[2024-11-24 15:46] LABS: Basophils Absolute Auto 0.1 K/mm3 (0.0-0.1); Basophils Percent Auto 0.7 % (0.2-1.2); Eosinophils Absolute Auto 0.3 K/mm3 (0-0.3); Eosinophils Percent Auto 3.1 % (0-4.4); Hematocrit 33.4 % (37.0-47.0); Hemoglobin 10.9 g/dL (12.0-15.0); Immature Granulocyte Absolute 0.06 K/mm3 (0.00-0.031); Immature Granulocyte Percent A 0.7 % (0-0.5); Lymphocytes Absolute Auto 1.52 K/mm3 (0.9-3.2); Lymphocytes Percent Auto 17.7 % (18.3-44.2); Mean Corpuscular HGB Conc 32.6 g/dl (32-36); Mean Corpuscular Hemoglobin 29.9 pg (26-34); Mean Corpuscular Volume 91.8 fl (80-100); Mean Platelet Volume 9.3 fl (7.4-10.4); Monocytes Absolute Auto 0.4 K/mm3 (0.1-0.6); Monocytes Percent Auto 4.8 % (2.6-8.5); Neutrophils Absolute Auto 6.3 K/mm3 (1.3-6.7); Platelet Count Result 353 k/mm3 (150-375); Red Blood Count 3.64 M/mm3 (4.2-5.4); Red Cell Distribution Width 15.6 % (11.5-14.5); White Blood Count 8.6 K/mm3 (4.5-10.0)
--- NOTE | 2024-11-24 15:49 | PC.NURSE ---
pt denies [place], blurry vision or swelling.
[2024-11-24 15:57] LABS: Alanine Aminotransferase 31 U/L (6-35); Albumin Level 3.7 g/dL (3.5-5.1); Alkaline Phosphatase 77 U/L (38-126); Anion Gap 10 mmol/L (4-12); Aspartate Amino Transferase 29 U/L (14-36); Bilirubin,Total 0.3 mg/dL (0.2-1.3); Blood Urea Nitrogen 13 mg/dL (7-17); Calcium 8.8 mg/dL (8.4-10.2); Carbon Dioxide 21 mmol/L (22-30); Chloride 107 mmol/L (98-107); Estimated Glomerular Filt Rate > 60; Glucose 84 mg/dL (65-110); Potassium 3.9 mmol/L (3.4-5.0); Sodium 138 mmol/L (137-145); Uric Acid 5.6 mg/dL (2.5-7.5)
--- NOTE | 2024-11-24 17:22 | PC.NURSE ---
lung sounds clear bilaterally
--- NOTE | 2024-11-24 18:03 | PC.NURSE ---
Dr. Rich informed pt is refusing the Magnesium sulfate and wanted to sign out AMA. Talked to pt about her risk of stroke or seizures with the severe BP's and pt has now agreed to stay for more antihypertensive meds, but not IV Magnesium sulfate. Orders received.
--- NOTE | 2024-11-24 18:13 | PC.NURSE ---
Dr. Rich informed pt's BP was down to 147/81 when I went to give her the Procardia 10 mg. Order received to cancel the 10 mg and just given the 60 mg XL now.
[2024-11-24] MEDS: NIFEdipine 30 MG TAB.ER.24 60 MG PO (18:16)
[2024-11-24] MEDS: lamoTRIgine 50 MG TABLET PO (20:03)
[2024-11-24] MEDS: LABETALOL HCL 100 MG TABLET 400 MG PO (20:49)
--- NOTE | 2024-11-24 21:00 | PC.NURSE ---
2100 Patient was educated on the importance of receiving Magnesium Sulfate IV as per orders from Dr Rich. Patient was informed that untreated high blood pressures could possibly result in seizures, stroke, and can be life threatening. All PO options to lower blood pressures were given per Dr Grey orders. Patient refused all IV options including Magnesium Sulfate. Patient states I would prefer to go home tonight and contact a frozen foods manager on wednesday. Educated patient on the importance of seeking additional treatment for the following symptoms; unresolved headache, swelling in the hands or face, right upper quadrant pain, visual disturbances, and/or sudden unexplained weight gain.
--- NOTE | 2024-12-17 21:44 | PM.OBTRLD ---
OB - Triage/Final Diagnosis Visit Information Comments/Additional reasons for admission: I have assessed the risk for this patient, Phill Muller, and determined that she would benefit from observation care. Evaluation Laboratory results: Laboratory Tests 11/24/24 15:40 WBC 8.6 RBC 3.64 L Hgb 10.9 L Hct 33.4 L MCV 91.8 MCH 29.9 MCHC 32.6 RDW 15.6 H Plt Count 353 MPV 9.3 Immature Gran % (Auto) 0.7 H Neut % (Auto) 73.0 Lymph % (Auto) 17.7 L Newton % (Auto) 4.8 Eos % (Auto) 3.1 Baso % (Auto) 0.7 Lymph # (Auto) 1.52 Newton # (Auto) 0.4 Eos # (Auto) 0.3 Baso # (Auto) 0.1 Abs Immat Gran (auto) 0.06 H Absolute Neuts (auto) 6.3 Absolute Nucleated RBC 0.000 Nucleated RBC % 0.0 Sodium 138 Potassium 3.9 Chloride 107 Carbon Dioxide 21 L Anion Gap 10 BUN 13 D Creatinine 0.80 Estim Creat Clear Calc Not Reportable Estimated GFR > 60 Glucose 84 Uric Acid 5.6 Calcium 8.8 Total Bilirubin 0.3 AST 29 ALT 31 Alkaline Phosphatase 77 Total Protein 7.0 Albumin 3.7 Final Diagnosis (1) Preeclampsia in period: Code(s): O14.95 - Unspecified pre-eclampsia, complicating the puerperium Status: Acute
== END 2024-11-24 21:24 | disposition left against medical advice (07) ==
LOC: ANHOBOP 18:01 → ANHOBPP 18:01
PROVIDERS: Advanced Practice Midwife; Admitting Provider Obstetrics & Gynecology; Visit Provider Obstetrics & Gynecology
DX: O14.95 Unspecified pre-eclampsia, complicating the puerperium (principal)
CPT/HCPCS: 36415; 80053; 84550; 85025; A9270; G0378; G0379